=== PATIENT | female | born 1970 | race Hispanic/Latino ===

== ENCOUNTER 2023-02-11 02:33 | Emergency (ER) | payer OTHER, SELFPAY ==
--- OUTSIDE RECORDS SUMMARY | 2023-02-11 02:38 | XMS REPORT | Continuity of Care Document ---
:1970 Author Organization [facility] t Address [address] [facility]. [address] [place] [address] Care Team Providers Name Role Phone Jeremias FORD, [facility] Primary Care Physician [phone] SERVICE, DOCTOR REVIEW Attending Clinician Unavailable Darrius Whitlock Attending Clinician Unavailable Phil Attending Clinician Unavailable SERVICE, DOCTOR REVIEW Admitting Clinician Unavailable KNOW, DOES_NOT Admitting Clinician Unavailable Phil Admitting Clinician Unavailable Payers Payer Name Policy Type Policy Number Effective Date Expiration Date S ource Problems Condition Condition Condition Status Onset Resolution Last Treating Co mments Source Name Details Category Date Date Treatment Clinician Date Peroneal Peroneal Problem Active Azale a tendinitis Tendinitis 2-21 Or thope of right of Right 00:00: dic lower limb Lower Limb 00 Sp orts Medicin e Sprain of Sprain of Problem Active 2021-06 Aza alice right Right 0-25 Orthope ankle Ankle 00:00: dic 00 Sports Medicin e Allergies, Adverse Reactions, Alerts Allergy Allergy Status Severity Reaction(s) Onset Inactive Treating Comm ents Source Name Type Date Date Clinician Mesna - Propensi Active Intraven ty to 6-27 ous adverse 00:00: reaction 00 to drug Social History Smoking Status Start Date Stop Date Source Never Smoker [facility] Medications Ordered Filled Start Stop Current Ordering Indication Dosage Frequency Signature Comments Components Source Medication Medication Date Date Medication? Clinician (SIG) Name Name TAKE 1 No 500 TABLET BY 8-24 MOUTH EVERY 00:00: 12 HOURS 00 Dose 2021-0 No Unknown 3-30 00:00: 00 Dose 2021-0 No Unknown 3-30 00:00: 00 Dose 2021-0 No Unknown 3-30 00:00: 00 Dose 2021-0 No Unknown 3-30 00:00: 00 polyethylen 2-0 No 1gram e glycol 3-28 3350 17 00:00: gram oral 00 powder packet Dose 2021-0 No Unknown 3- 00:00: 00 Dose 2021-0 No Unknown 3- 00:00: 00 Dose 2021-0 No Unknown 3- 00:00: 00 polyethylen 2021-0 No 1gram e glycol 3 3350 17 00:00: gram oral 00 powder packet Dose 2021-0 No Unknown 3- 00:00: 00 Dose 2021-0 No Unknown 3- 00:00: 00 Dose 2021-0 No Unknown 3- 00:00: 00 Bactrim DS 2020-0 No 1mg 800 mg-160 6-25 mg tablet 00:00: 00 Bactrim DS 2020-0 No 1mg 800 mg-160 6-25 mg tablet 00:00: 00 Diflucan 2017-1 No 1mg 150 mg 2-28 tablet 00:00: 00 Diflucan 2017-1 No 1mg 150 mg 2-28 tablet 00:00: 00 diclofenac diclofenac No diclofenac Hayley sodium 75 sodium 75 sodium 75 Orthope mg mg mg dic tablet,manuelito tablet,manuelito tablet,del Sports yed release yed release ayed M edicin TAKE 1 TAKE 1 release e TABLET BY TABLET BY TAKE 1 MOUTH TWICE MOUTH TWICE TABLET BY DAILY DAILY MOUTH NEEDED WITH NEEDED WITH TWICE FOOD, NOT FOOD, NOT DAILY ON AM EMPTY ON AM EMPTY NEEDED STOMACH STOMACH WITH FOOD, NOT ON AM EMPTY STOMACH naproxen naproxen No naproxen Aza alice 500 mg 500 mg 500 mg Orthope tablet TAKE tablet TAKE tablet dic 1 TABLET BY 1 TABLET BY TAKE 1 Sports MOUTH EVERY MOUTH EVERY TABLET BY Medicin 12 HOURS 12 HOURS MOUTH e EVERY 12 HOURS diclofenac diclofenac No diclofenac Hayley sodium 75 sodium 75 sodium 75 Orthope mg mg mg dic tablet,manuelito tablet,manuelito tablet,del Sports yed release yed release ayed M edicin TAKE 1 TAKE 1 release e TABLET BY TABLET BY TAKE 1 MOUTH TWICE MOUTH TWICE TABLET BY DAILY DAILY MOUTH NEEDED WITH NEEDED WITH TWICE FOOD, NOT FOOD, NOT DAILY ON AM EMPTY ON AM EMPTY NEEDED STOMACH STOMACH WITH FOOD, NOT ON AM EMPTY STOMACH naproxen naproxen No naproxen Aza alice 500 mg 500 mg 500 mg Orthope tablet TAKE tablet TAKE tablet dic 1 TABLET BY 1 TABLET BY TAKE 1 Sports MOUTH EVERY MOUTH EVERY TABLET BY Medicin 12 HOURS 12 HOURS MOUTH e EVERY 12 HOURS diclofenac diclofenac No diclofenac Hayley sodium 75 sodium 75 sodium 75 Orthope mg mg mg dic tablet,manuelito tablet,manuelito tablet,del Sports yed release yed release ayed M edicin TAKE 1 TAKE 1 release e TABLET BY TABLET BY TAKE 1 MOUTH TWICE MOUTH TWICE TABLET BY DAILY DAILY MOUTH NEEDED WITH NEEDED WITH TWICE FOOD, NOT FOOD, NOT DAILY ON AM EMPTY ON AM EMPTY NEEDED STOMACH STOMACH WITH FOOD, NOT ON AM EMPTY STOMACH naproxen naproxen No naproxen Aza alice 500 mg 500 mg 500 mg Orthope tablet TAKE tablet TAKE tablet dic 1 TABLET BY 1 TABLET BY TAKE 1 Sports MOUTH EVERY MOUTH EVERY TABLET BY Medicin 12 HOURS 12 HOURS MOUTH e EVERY 12 HOURS Immunizations Ordered Immunization Filled Immunization Date Status Commen ts Source Name Name Tdap 2020-12-12 Completed 00:00:00 Tdap 2020-12-12 Completed 00:00:00 Vital Signs Vital Name Observation Time Observation Value Comments Source BP Systolic 2022-02-03 10:40:00 115 mm[Hg] BP Diastolic 2022-02-03 10:40:00 82 mm[Hg] Weight Measured 2022-02-03 10:40:00 164.00 pounds Height Measured 2022-02-03 10:40:00 63.00 inches Body Temperature 2022-02-03 10:40:00 98.00 degrees Heart Rate 2022-02-03 10:40:00 98.00 /min Respiratory Rate 2022-02-03 10:40:00 18.00 /min BP Systolic 2021-12-07 16:04:00 132 mm[Hg] BP Diastolic 2021-12-07 16:04:00 82 mm[Hg] Weight Measured 2021-12-07 16:04:00 163.60 pounds Height Measured 2021-12-07 16:04:00 63.00 inches Body Temperature 2021-12-07 16:04:00 97.70 degrees Heart Rate 2021-12-07 16:04:00 69.00 /min Respiratory Rate 2021-12-07 16:04:00 BP Systolic 2021-09-07 14:07:00 115 mm[Hg] BP Diastolic 2021-09-07 14:07:00 78 mm[Hg] Weight Measured 2021-09-07 14:07:00 167.40 pounds Height Measured 2021-09-07 14:07:00 63.00 inches Body Temperature 2021-09-07 14:07:00 98.30 degrees Heart Rate 2021-09-07 14:07:00 74.00 /min Respiratory Rate 2021-09-07 14:07:00 16.00 /min BP Systolic 2020-12-16 11:16:00 132 mm[Hg] BP Diastolic 2020-12-16 11:16:00 78 mm[Hg] Weight Measured 2020-12-16 11:16:00 165.40 pounds Height Measured 2020-12-16 11:16:00 63.00 inches Body Temperature 2020-12-16 11:16:00 98.10 degrees Heart Rate 2020-12-16 11:16:00 64.00 /min Respiratory Rate 2020-12-16 11:16:00 17.00 /min BP Systolic 2020-12-12 11:14:00 131 mm[Hg] BP Diastolic 2020-12-12 11:14:00 83 mm[Hg] Weight Measured 2020-12-12 11:14:00 166.20 pounds Height Measured 2020-12-12 11:14:00 63.00 inches Body Temperature 2020-12-12 11:14:00 98.10 degrees Heart Rate 2020-12-12 11:14:00 73.00 /min Respiratory Rate 2020-12-12 11:14:00 BP Systolic 2019-12-06 09:58:00 118 mm[Hg] BP Diastolic 2019-12-06 09:58:00 83 mm[Hg] Weight Measured 2019-12-06 09:58:00 158.00 pounds Height Measured 2019-12-06 09:58:00 63.00 inches Body Temperature 2019-12-06 09:58:00 98.10 degrees Heart Rate 2019-12-06 09:58:00 75.00 /min Respiratory Rate 2019-12-06 09:58:00 BP Systolic 2019-10-18 11:25:00 99 mm[Hg] BP Diastolic 2019-10-18 11:25:00 67 mm[Hg] Weight Measured 2019-10-18 11:25:00 156.00 pounds Height Measured 2019-10-18 11:25:00 63.00 inches Body Temperature 2019-10-18 11:25:00 98.50 degrees Heart Rate 2019-10-18 11:25:00 79.00 /min Respiratory Rate 2019-10-18 11:25:00 16.00 /min BP Systolic 2019-06-27 15:59:00 115 mm[Hg] BP Diastolic 2019-06-27 15:59:00 81 mm[Hg] Weight Measured 2019-06-27 15:59:00 159.20 pounds Height Measured 2019-06-27 15:59:00 63.00 inches Body Temperature 2019-06-27 15:59:00 97.90 degrees Heart Rate 2019-06-27 15:59:00 82.00 /min Respiratory Rate 2019-06-27 15:59:00 BP Systolic 2018-06-22 08:26:00 127 mm[Hg] BP Diastolic 2018-06-22 08:26:00 70 mm[Hg] Weight Measured 2018-06-22 08:26:00 165.60 pounds Height Measured 2018-06-22 08:26:00 63.00 inches Body Temperature 2018-06-22 08:26:00 98.10 degrees Heart Rate 2018-06-22 08:26:00 68.00 /min Respiratory Rate 2018-06-22 08:26:00 18.00 /min BP Diastolic 2017-07-07 10:31:00 87 mm[Hg] Weight Measured 2017-07-07 10:31:00 161.40 pounds Height Measured 2017-07-07 10:31:00 63.00 inches Body Temperature 2017-07-07 10:31:00 97.90 degrees Heart Rate 2017-07-07 10:31:00 76.00 /min Respiratory Rate 2017-07-07 10:31:00 BP Systolic 2017-07-07 10:31:00 123 mm[Hg] BP Systolic 2017-05-09 10:27:00 121 mm[Hg] BP Diastolic 2017-05-09 10:27:00 86 mm[Hg] Weight Measured 2017-05-09 10:27:00 158.00 pounds Height Measured 2017-05-09 10:27:00 63.00 inches Body Temperature 2017-05-09 10:27:00 98.20 degrees Heart Rate 2017-05-09 10:27:00 96.00 /min Respiratory Rate 2017-05-09 10:27:00 18.00 /min Procedures Procedure Date / Time Performed Performing Clinician Sourc e XR, ankle, 3 or more 2022-04-06 00:00:00 [facility] Orthopedic view Sports Medicine MRI, ankle, w/o 2022-04-06 00:00:00 [facility] Ortho pedic contrast Sports Medicine [id number] Colposcopy 2017-07-07 00:00:00 Cervix Bx Cervix endocrv Curtg Plan of Care Planned Activity Planned Date Details Comments Source Goal Plan of Care Note [code = 67358-8] Goal Plan of Care Note [code = 64885-0] Goal Plan of Care Note [code = 28200-5] Goal Plan of Care Note [code = 57611-9] Goal Plan of Care Note [code = 24422-8] Goal Plan of Care Note [code = 18221-4] Goal Plan of Care Note [code = 28228-5] Goal Plan of Care Note [code = 26464-2] Goal Plan of Care Note [code = 80174-5] Goal Plan of Care Note [code = 85360-2] Goal Plan of Care Note [code = 16760-9] Goal Plan of Care Note [code = 36544-3] Goal Plan of Care Note [code = 21898-4] Goal Plan of Care Note [code = 72314-9] Goal Plan of Care Note [code = 60996-1] Goal Plan of Care Note [code = 48580-5] Goal Plan of Care Note [code = 29994-5] Goal Plan of Care Note [code = 18628-6] Goal Plan of Care Note [code = 48421-9] Goal Plan of Care Note [code = 94323-8] Goal Plan of Care Note [code = 91595-9] Goal Plan of Care Note [code = 71448-4] Goal Plan of Care Note [code = 74330-4] Goal Plan of Care Note [code = 14633-5] Goal Plan of Care Note [code = 41424-6] Goal Plan of Care Note [code = 59083-8] Goal Plan of Care Note [code = 34518-4] Goal Plan of Care Note [code = 72777-5] Goal Plan of Care Note [code = 80994-7] Goal Plan of Care Note [code = 63766-5] Goal Plan of Care Note [code = 28397-4] Goal Plan of Care Note [code = 87947-2] Goal Plan of Care Note [code = 82142-6] Goal Plan of Care Note [code = 27080-9] Goal Plan of Care Note [code = 52368-2] Goal Plan of Care Note [code = 52849-5] Goal Plan of Care Note [code = 68478-3] Goal Plan of Care Note [code = 16164-6] Goal Plan of Care Note [code = 22437-8] Goal Plan of Care Note [code = 73238-6] Goal Plan of Care Note [code = 33913-1] Goal Plan of Care Note [code = 84035-4] Goal Plan of Care Note [code = 00195-2] Goal Plan of Care Note [code = 00386-5] Goal Plan of Care Note [code = 69568-9] Goal Plan of Care Note [code = 32344-7] Goal Plan of Care Note [code = 15499-2] Goal Plan of Care Note [code = 47842-3] Goal Plan of Care Note [code = 32386-2] Goal Plan of Care Note [code = 44544-3] Goal Plan of Care Note [code = 56096-9] Goal Plan of Care Note [code = 13203-4] Goal Plan of Care Note [code = 99471-3] Goal Plan of Care Note [code = 71334-0] Goal Plan of Care Note [code = 10197-0] Goal Plan of Care Note [code = 53005-3] Goal Plan of Care Note [code = 59549-0] Goal Plan of Care Note [code = 85076-7] Goal Plan of Care Note [code = 04433-5] Instructions [facility] Sports Medicine Encounters Start End Encounter Admission Attending Care Care Encounter Source Date/Time Date/Time Type Type Clinicians Facility Department ID 2022-07-07 Inpatient ALYSSA PACHECO REHA [id number] [facility] 15:31:00 DOCTOR [facility] 2022-08-04 2022-08-04 Darrius Malone AOS[facility] [place] - Ortho [id number] Hayley 00:00:00 00:00:00 Payton Whitlock MD: [id number] [facility] Spo [facility] e [phone] , Ph. [phone] 2022-07-14 2022-07-14 Inpatient LESLIE GreenTO RADI [id number] [facility] 11:00:00 11:00:00 Darrius [facility] 2022-07-05 2022-07-05 Outpatient [facility]_[place]_ AOSM AOSM [id number] Hayley 00:00:00 00:00:00 Jessy [id number] Ortho pe dic Sports Medicin e 2022-06-30 2022-06-30 Darrius Malone AOS[facility] [place] - Ortho [id number] Hayley 00:00:00 00:00:00 Payton Whitlock MD: [address] [facility] e [address] , Ph. [phone] 2022-05-12 2022-05-12 Outpatient F[facility]_[place]_ AOSM AOSM [id number] Hayley 00:00:00 00:00:00 Jessy [id number] Ortho pe dic Sports Medicin e 2022-04-06 2022-04-06 Outpatient Kamlesh LESLIETO RADI [id number] [facility] 13:30:00 13:30:00 Darrius [facility] 2022-04-06 2022-04-06 Outpatient [facility]_[place]_ AOSM AOSM [id number] Hayley 00:00:00 00:00:00 Jessy [id number] Ortho pe dic Sports Medicin e 2022-04-06 2022-04-06 Darrius FLORENTINOSM [place] - Ortho [id number] Hayley 00:00:00 00:00:00 Payton Whitlock MD: [address] [facility] Sp[place] [address] , Ph. [phone] 2022-03-17 2022-03-17 Outpatient FOG_[place]_ AOSM AOSM [id number] Hayley 00:00:00 00:00:00 Jessy [id number] Ortho pe dic Sports Medicin e 2022-02-03 2022-02-03 Outpatient [id number]- [id number] 00:00:00 00:00:00 Visit [id number] 2021-12-07 2021-12-07 Outpatient [id number] [id number] 00:00:00 00:00:00 Visit [id number] Results Test Description Test Time Test Comments Results Result Comments Source HIV 1/2 4TH GEN, RFLX CONF 2022-02-04 06:22:40 Test Item Value Reference Range Interpretation Comme nts HIV 1/2 4TH GEN, RFLX CONF (test code = 3514) NON-REACTIVE NON-REAC TIVE HEPATITIS PANEL, [id number] 06:22:40 Test Item Value Reference Range Interpretation Comments HEPATITIS A IgM (test NON-REACTIVE NON-REACTIVE code = 33670) HEPATITIS B CORE IgM NON-REACTIVE NON-REACTIVE (test code = 4644) HEPATITIS B SURF AG NON-REACTIVE NON-REACTIVE (test code = 2739) HEPATITIS C ANTIBODY NON-REACTIVE NON-REACTIVE (test code = 4675) INTERPRETATION (NOTE) Hepatitis A HEPATITIS A: (test serology shows no code = 2552) evidence of acu te hepatitis A. INTERPRETATION (NOTE) Hepatitis B HEPATITIS B: (test serology shows no code = 11429) evidence of ac darien hepatitis B and no indication of exposure to hepatitis B vir us in the previous si xto eight months. INTERPRETATION (NOTE) Hepatitis C HEPATITIS C: (test serology shows no code = 98768) evidence of ex posure to hepatitisC v irus at this time. I t can take up to 12 m onths after exposure tothe hepatitis C vir us for antibodies to become detectab le in the blood in ce rtain patients. UNLES S OTHERWISE INDIC ATED, ALL TESTING PERFORMED [facility], [facility]. [address] [place] [place] [address] [facility] DIRECTOR: NABIL PRIETO M.D. CLIA NUMBER [id number] [place] [id number] HEMOGLOBIN [id number] 05:16:18 Test Item Value Reference Range Interpretation Comments HEMOGLOBIN A1c (test code = 04496) 5.1 % 4.2-5.6 LIPID [id number] 03:50:06 Test Item Value Reference Range Interpretation Comments CHOLESTEROL (test 237 MG/DL <200 H code = 2210) TRIGLYCERIDES (test 303 MG/DL <150 H code = 2232) HDL CHOLESTEROL (test 58 MG/DL >39 code = 2220) CALC LDL CHOL (test 136 MG/DL <100 H NOTE: C ALCULATED LDL code = 2237) IS BASED ON ARTURO-SEVERINO METHOD WHICHINCLUDES ADJUSTABLE TRIGLYCERIDE:VL DL CHOLESTEROL RAT IO.THIS FACTOR VARIES B Y MEASURED TRIGLY CERIDE AND NON-HDLCHOL ESTEROL CONCENTRATIONS WITH INCREASED CALCU LATED LDL SEENIN HIGH ER TRIGLYCERIDE OR LOWER NON-HDL SPECIME NS. FOR MOREINFORMATION , SEE CLIENT ANNOUNCE MENT AT [email or web address] [email or web address] [email or web address] LDL/HDL 2.34 RATIO <3.22 (test code = 2238) COMPREHENSIVE METABOLIC [id number] 03:50:06 Test Item Value Reference Range Interpretation Comments GLUCOSE (test code = 79 MG/DL 70-99 2216) BUN (test code = 10 MG/DL -2207) CREATININE (test 0.66 MG/DL 0.60-1.30 code = 2214) eGFR (2020 CKD-EPI) 104 >60 (test code = 68373) ML/MIN/1.73 CALC BUN/CREAT (test 15 RATIO - code = 2235) SODIUM (test code = 140 MEQ/L 030-971 1207) POTASSIUM (test code 4.3 MEQ/L 3.5-5.4 = 2227) CHLORIDE (test code 105 MEQ/L 95-107 = 2215) CARBON DIOXIDE (test 22 MEQ/L 19-31 code = 2206) CALCIUM (test code = 9.5 MG/DL 8.5-10.5 220) PROTEIN, TOTAL (test 7.7 G/DL 6.1-8.3 code = 2229) ALBUMIN (test code = 4.4 G/DL 3.5-5.2 220) CALC GLOBULIN (test 3.3 G/DL 1.9-3.7 code = 2240) CALC A/G RATIO (test 1.3 RATIO 1.0-2.6 code = 2234) BILIRUBIN, TOTAL 0.4 MG/DL See_Comment [Automated message] (test code = 220) The syste m which generated this result transmit art reference range : <=1.2. The refe rence range was not u sed to interpret th is result as normal/abnormal . ALKALINE PHOSPHATASE 147 U/L 40-133 H (test code = 2203) AST (test code = 25 U/L 9-40 2217) ALT (test code = 19 U/L 5-40 2218) CBC W/AUTO DIFF WITH [id number] 03:28:45 Test Item Value Reference Range Interpretation Comments WBC (test code = 7.8 K/UL 3.5-11.0 1001) RBC (test code = 4.75 M/UL 3.80-5.40 1002) HEMOGLOBIN (test code 13.3 G/DL 11.5-15.5 = 1003) HEMATOCRIT (test code 39.6 % 34.0-45.0 = 1004) MCV (test code = 83.4 fL 80.0-99.0 1005) MCH (test code = 28.0 PG 25.0-33.0 1006) MCHC (test code = 33.6 G/DL 31.0-36.0 1007) RDW (test code = 13.8 % 11.5-15.0 1038) NEUTROPHILS (test 73.4 % code = 1008) LYMPHOCYTES (test 17.5 % code = 1010) MONOCYTES (test code 6.8 % = 1011) EOSINOPHILS (test 1.5 % code = 1012) BASOPHILS (test code 0.5 % = 1013) IMMATURE GRANULOCYTES 0.3 % (test code = 1036) NUCLEATED RBCS (test 0.0 /100 WBC'S See_Comment [Aut omated code = 1065) message] The sy stem which generated this result transmitted reference range : 0.0. The refere nce range was not u sed to interpret th is result as normal/abnormal . PLATELET COUNT (test 359 K/UL 130-400 code = 1015) ABSOLUTE NEUTROPHILS 5.74 K/UL 1.50-7.50 (test code = 1066) ABSOLUTE LYMPHOCYTES 1.37 K/UL 1.00-4.00 (test code = 1067) ABSOLUTE MONOCYTES 0.53 K/UL 0.20-1.00 (test code = 1068) ABSOLUTE EOSINOPHILS 0.12 K/UL 0.00-0.50 (test code = 1040) ABSOLUTE BASOPHILS 0.04 K/UL 0.00-0.20 (test code = 1069) ABS IMMATURE 0.02 K/UL 0.00-0.10 GRANULOCYTES (test code = 1020) ABS NUCLEATED RBCS 0.00 K/UL 0.00-0.11 (test code = 15646) [id number] 02:59:22 Test Item Value Reference Range Interpretation Comments RPR RESULT (test code = NON-REACTIVE NON-REACTIVE 3501) RPR TITER (test code = 3500) NOT INDIC. TITER NOT INDIC. LIPID [id number] 05:34:01 Test Item Value Reference Range Interpretation Comments CHOLESTEROL (test 249 MG/DL <200 H code = 2210) TRIGLYCERIDES (test 179 MG/DL <150 H code = 2232) HDL CHOLESTEROL (test 66 MG/DL >39 code = 2220) CALC LDL CHOL (test 152 MG/DL <100 H NOTE: C ALCULATED LDL code = 2237) IS BASED ON ARTURO-SEVERINO METHOD WHICHINCLUDES ADJUSTABLE TRIGLYCERIDE:VL DL CHOLESTEROL RAT IO.THIS FACTOR VARIES B Y MEASURED TRIGLY CERIDE AND NON-HDLCHOL ESTEROL CONCENTRATIONS WITH INCREASED CALCU LATED LDL SEENIN HIGH ER TRIGLYCERIDE OR LOWER NON-HDL SPECIME NS. FOR MOREINFORMATION , SEE CLIENT ANNOUNCE MENT AT [email or web address] LDL/HDL 2.30 RATIO <3.22 UNLESS O THERWISE (test code = 2238) INDICATED , ALL TESTING PERFORMED [facility], [place]. [address] [facility] [place] [address] [facility] DIRECTOR: NABIL PRIETO M.D. CLIA NUMBER [id number] [facility] ACCREDITATION N O. [id number] LIPID [id number] 00:00:00 Test Item Value Reference Range Interpretation Comments CHOLESTEROL (test code = 2210) 249 MG/DL TRIGLYCERIDES (test code = 2232) 179 MG/DL HDL CHOLESTEROL (test code = 2220) 66 MG/DL CALC LDL CHOL (test code = 2237) 152 MG/DL RISK RATIO LDL/HDL (test code = 2.30 RATIO 2238) LIPID [id number] 00:00:00 Test Item Value Reference Range Interpretation Comments CHOLESTEROL (test code = 2210) 249 MG/DL TRIGLYCERIDES (test code = 2232) 179 MG/DL HDL CHOLESTEROL (test code = 2220) 66 MG/DL CALC LDL CHOL (test code = 2237) 152 MG/DL RISK RATIO LDL/HDL (test code = 2.30 RATIO 2238) LIPID [id number] 00:00:00 Test Item Value Reference Range Interpretation Comments CHOLESTEROL (test code = 2210) 249 MG/DL TRIGLYCERIDES (test code = 2232) 179 MG/DL HDL CHOLESTEROL (test code = 2220) 66 MG/DL CALC LDL CHOL (test code = 2237) 152 MG/DL RISK RATIO LDL/HDL (test code = 2.30 RATIO 2238) CBC W/AUTO [id number] 00:00:00 Test Item Value Reference Range Interpretation Comments WBC (test code = 1001) 7.5 K/UL RBC (test code = 1002) 4.78 M/UL HEMOGLOBIN (test code = 1003) 14.6 G/DL HEMATOCRIT (test code = 1004) 43.1 % MCV (test code = 1005) 90.2 fL MCH (test code = 1006) 30.5 PG MCHC (test code = 1007) 33.9 G/DL RDW (test code = 1038) 12.3 % NEUTROPHILS (test code = 1008) 68.2 % LYMPHOCYTES (test code = 1010) 24.0 % MONOCYTES (test code = 1011) 5.6 % EOSINOPHILS (test code = 1012) 1.2 % BASOPHILS (test code = 1013) 0.7 % IMMATURE GRANULOCYTES (test 0.3 % code = 1036) NUCLEATED RBCS (test code = 0.0 /100WBC'S 1065) PLATELET COUNT (test code = 359 K/UL 1015) ABSOLUTE NEUTROPHILS (test code 5.09 K/UL = 1066) ABSOLUTE LYMPHOCYTES (test code 1.79 K/UL = 1067) ABSOLUTE MONOCYTES (test code = 0.42 K/UL 1068) ABSOLUTE EOSINOPHILS (test code 0.09 K/UL = 1040) ABSOLUTE BASOPHILS (test code = 0.05 K/UL 1069) ABS IMMATURE GRANULOCYTES (test 0.02 K/UL code = 1020) ABS NUCLEATED RBCS (test code = 0.00 K/UL 54637) CBC W/AUTO [id number] 00:00:00 Test Item Value Reference Range Interpretation Comments WBC (test code = 1001) 7.5 K/UL RBC (test code = 1002) 4.78 M/UL HEMOGLOBIN (test code = 1003) 14.6 G/DL HEMATOCRIT (test code = 1004) 43.1 % MCV (test code = 1005) 90.2 fL MCH (test code = 1006) 30.5 PG MCHC (test code = 1007) 33.9 G/DL RDW (test code = 1038) 12.3 % NEUTROPHILS (test code = 1008) 68.2 % LYMPHOCYTES (test code = 1010) 24.0 % MONOCYTES (test code = 1011) 5.6 % EOSINOPHILS (test code = 1012) 1.2 % BASOPHILS (test code = 1013) 0.7 % IMMATURE GRANULOCYTES (test 0.3 % code = 1036) NUCLEATED RBCS (test code = 0.0 /100WBC'S 1065) PLATELET COUNT (test code = 359 K/UL 1015) ABSOLUTE NEUTROPHILS (test code 5.09 K/UL = 1066) ABSOLUTE LYMPHOCYTES (test code 1.79 K/UL = 1067) ABSOLUTE MONOCYTES (test code = 0.42 K/UL 1068) ABSOLUTE EOSINOPHILS (test code 0.09 K/UL = 1040) ABSOLUTE BASOPHILS (test code = 0.05 K/UL 1069) ABS IMMATURE GRANULOCYTES (test 0.02 K/UL code = 1020) ABS NUCLEATED RBCS (test code = 0.00 K/UL 05804) CBC W/AUTO [id number] 00:00:00 Test Item Value Reference Range Interpretation Comments WBC (test code = 1001) 7.5 K/UL RBC (test code = 1002) 4.78 M/UL HEMOGLOBIN (test code = 1003) 14.6 G/DL HEMATOCRIT (test code = 1004) 43.1 % MCV (test code = 1005) 90.2 fL MCH (test code = 1006) 30.5 PG MCHC (test code = 1007) 33.9 G/DL RDW (test code = 1038) 12.3 % NEUTROPHILS (test code = 1008) 68.2 % LYMPHOCYTES (test code = 1010) 24.0 % MONOCYTES (test code = 1011) 5.6 % EOSINOPHILS (test code = 1012) 1.2 % BASOPHILS (test code = 1013) 0.7 % IMMATURE GRANULOCYTES (test 0.3 % code = 1036) NUCLEATED RBCS (test code = 0.0 /100WBC'S 1065) PLATELET COUNT (test code = 359 K/UL 1015) ABSOLUTE NEUTROPHILS (test code 5.09 K/UL = 1066) ABSOLUTE LYMPHOCYTES (test code 1.79 K/UL = 1067) ABSOLUTE MONOCYTES (test code = 0.42 K/UL 1068) ABSOLUTE EOSINOPHILS (test code 0.09 K/UL = 1040) ABSOLUTE BASOPHILS (test code = 0.05 K/UL 1069) ABS IMMATURE GRANULOCYTES (test 0.02 K/UL code = 1020) ABS NUCLEATED RBCS (test code = 0.00 K/UL 99297) CBC W/AUTO [id number] 00:00:00 Test Item Value Reference Range Interpretation Comments WBC (test code = 1001) 7.5 K/UL RBC (test code = 1002) 4.78 M/UL HEMOGLOBIN (test code = 1003) 14.6 G/DL HEMATOCRIT (test code = 1004) 43.1 % MCV (test code = 1005) 90.2 fL MCH (test code = 1006) 30.5 PG MCHC (test code = 1007) 33.9 G/DL RDW (test code = 1038) 12.3 % NEUTROPHILS (test code = 1008) 68.2 % LYMPHOCYTES (test code = 1010) 24.0 % MONOCYTES (test code = 1011) 5.6 % EOSINOPHILS (test code = 1012) 1.2 % BASOPHILS (test code = 1013) 0.7 % IMMATURE GRANULOCYTES (test 0.3 % code = 1036) NUCLEATED RBCS (test code = 0.0 /100WBC'S 1065) PLATELET COUNT (test code = 359 K/UL 1015) ABSOLUTE NEUTROPHILS (test code 5.09 K/UL = 1066) ABSOLUTE LYMPHOCYTES (test code 1.79 K/UL = 1067) ABSOLUTE MONOCYTES (test code = 0.42 K/UL 1068) ABSOLUTE EOSINOPHILS (test code 0.09 K/UL = 1040) ABSOLUTE BASOPHILS (test code = 0.05 K/UL 1069) ABS IMMATURE GRANULOCYTES (test 0.02 K/UL code = 1020) ABS NUCLEATED RBCS (test code = 0.00 K/UL 78611) CBC W/AUTO [id number] 00:00:00 Test Item Value Reference Range Interpretation Comments WBC (test code = 1001) 7.5 K/UL RBC (test code = 1002) 4.78 M/UL HEMOGLOBIN (test code = 1003) 14.6 G/DL HEMATOCRIT (test code = 1004) 43.1 % MCV (test code = 1005) 90.2 fL MCH (test code = 1006) 30.5 PG MCHC (test code = 1007) 33.9 G/DL RDW (test code = 1038) 12.3 % NEUTROPHILS (test code = 1008) 68.2 % LYMPHOCYTES (test code = 1010) 24.0 % MONOCYTES (test code = 1011) 5.6 % EOSINOPHILS (test code = 1012) 1.2 % BASOPHILS (test code = 1013) 0.7 % IMMATURE GRANULOCYTES (test 0.3 % code = 1036) NUCLEATED RBCS (test code = 0.0 /100WBC'S 1065) PLATELET COUNT (test code = 359 K/UL 1015) ABSOLUTE NEUTROPHILS (test code 5.09 K/UL = 1066) ABSOLUTE LYMPHOCYTES (test code 1.79 K/UL = 1067) ABSOLUTE MONOCYTES (test code = 0.42 K/UL 1068) ABSOLUTE EOSINOPHILS (test code 0.09 K/UL = 1040) ABSOLUTE BASOPHILS (test code = 0.05 K/UL 1069) ABS IMMATURE GRANULOCYTES (test 0.02 K/UL code = 1020) ABS NUCLEATED RBCS (test code = 0.00 K/UL 68623) HEMOGLOBIN [id number] 00:00:00 Test Item Value Reference Range Interpretation Comments HEMOGLOBIN A1c (test code = 26426) 4.9 % HEMOGLOBIN [id number] 00:00:00 Test Item Value Reference Range Interpretation Comments HEMOGLOBIN A1c (test code = 78787) 4.9 % HEMOGLOBIN [id number] 00:00:00 Test Item Value Reference Range Interpretation Comments HEMOGLOBIN A1c (test code = 24795) 4.9 % LIPID [id number] 00:00:00 Test Item Value Reference Range Interpretation Comments CHOLESTEROL (test code = 2210) 248 MG/DL TRIGLYCERIDES (test code = 2232) 231 MG/DL HDL CHOLESTEROL (test code = 2220) 67 MG/DL CALC LDL CHOL (test code = 2237) 144 MG/DL RISK RATIO LDL/HDL (test code = 2.15 RATIO 2238) LIPID [id number] 00:00:00 Test Item Value Reference Range Interpretation Comments CHOLESTEROL (test code = 2210) 248 MG/DL TRIGLYCERIDES (test code = 2232) 231 MG/DL HDL CHOLESTEROL (test code = 2220) 67 MG/DL CALC LDL CHOL (test code = 2237) 144 MG/DL RISK RATIO LDL/HDL (test code = 2.15 RATIO 2238) COMPREHENSIVE METABOLIC [id number] 00:00:00 Test Item Value Reference Range Interpretation Comments GLUCOSE (test code = 2217) 62 MG/DL BUN (test code = 2208) 10 MG/DL CREATININE (test code = 2214) 0.63 MG/DL eGFR AMER. (test code 120 ML/MIN/1.73 = 47850) eGFR NON- AMER. (test 103 ML/MIN/1.73 code = 19778) CALC BUN/CREAT (test code = 16 RATIO 2235) SODIUM (test code = 2231) 144 MEQ/L POTASSIUM (test code = 2228) 4.3 MEQ/L CHLORIDE (test code = 2215) 107 MEQ/L CARBON DIOXIDE (test code = 23 MEQ/L 2205) CALCIUM (test code = 2209) 9.3 MG/DL PROTEIN, TOTAL (test code = 7.3 G/DL 2228) ALBUMIN (test code = 2201) 4.4 G/DL CALC GLOBULIN (test code = 2.9 G/DL 2239) CALC A/G RATIO (test code = 1.5 RATIO 2234) BILIRUBIN, TOTAL (test code = 0.3 MG/DL 2206) ALKALINE PHOSPHATASE (test 134 U/L code = 2204) AST (test code = 2218) 21 U/L ALT (test code = 2219) 19 U/L COMPREHENSIVE METABOLIC [id number] 00:00:00 Test Item Value Reference Range Interpretation Comments GLUCOSE (test code = 2217) 62 MG/DL BUN (test code = 2208) 10 MG/DL CREATININE (test code = 2214) 0.63 MG/DL eGFR AMER. (test code 120 ML/MIN/1.73 = 42369) eGFR NON- AMER. (test 103 ML/MIN/1.73 code = 61269) CALC BUN/CREAT (test code = 16 RATIO 2235) SODIUM (test code = 2231) 144 MEQ/L POTASSIUM (test code = 2228) 4.3 MEQ/L CHLORIDE (test code = 2215) 107 MEQ/L CARBON DIOXIDE (test code = 23 MEQ/L 2205) CALCIUM (test code = 2209) 9.3 MG/DL PROTEIN, TOTAL (test code = 7.3 G/DL 2228) ALBUMIN (test code = 2201) 4.4 G/DL CALC GLOBULIN (test code = 2.9 G/DL 2240) CALC A/G RATIO (test code = 1.5 RATIO 4) BILIRUBIN, TOTAL (test code = 0.3 MG/DL 2206) ALKALINE PHOSPHATASE (test 134 U/L code = 2204) AST (test code = 2218) 21 U/L ALT (test code = 2219) 19 U/L [id number] 00:00:00 Test Item Value Reference Range Interpretation Comments TSH, THIRD GENERATION (test code 2.180 UIU/ML = 2821) [id number] 00:00:00 Test Item Value Reference Range Interpretation Comments TSH, THIRD GENERATION (test code 2.180 UIU/ML = 2821) [id number] 00:00:00 Test Item Value Reference Range Interpretation Comments TSH, THIRD GENERATION (test code 2.180 UIU/ML = 2821) HEMOGLOBIN [id number] 00:00:00 Test Item Value Reference Range Interpretation Comments HEMOGLOBIN A1c (test code = 15635) 4.9 % HEMOGLOBIN [id number] 00:00:00 Test Item Value Reference Range Interpretation Comments HEMOGLOBIN A1c (test code = 84431) 4.9 % LIPID [id number] 00:00:00 Test Item Value Reference Range Interpretation Comments CHOLESTEROL (test code = 2210) 248 MG/DL TRIGLYCERIDES (test code = 2232) 231 MG/DL HDL CHOLESTEROL (test code = 2220) 67 MG/DL CALC LDL CHOL (test code = 2237) 144 MG/DL RISK RATIO LDL/HDL (test code = 2.15 RATIO 2238) COMPREHENSIVE METABOLIC [id number] 00:00:00 Test Item Value Reference Range Interpretation Comments GLUCOSE (test code = 2217) 62 MG/DL BUN (test code = 2208) 10 MG/DL CREATININE (test code = 2214) 0.63 MG/DL eGFR AMER. (test code 120 ML/MIN/1.73 = 48628) eGFR NON- AMER. (test 103 ML/MIN/1.73 code = 58130) CALC BUN/CREAT (test code = 16 RATIO 2235) SODIUM (test code = 2231) 144 MEQ/L POTASSIUM (test code = 2228) 4.3 MEQ/L CHLORIDE (test code = 2215) 107 MEQ/L CARBON DIOXIDE (test code = 23 MEQ/L 220) CALCIUM (test code = 2209) 9.3 MG/DL PROTEIN, TOTAL (test code = 7.3 G/DL 2228) ALBUMIN (test code = 2201) 4.4 G/DL CALC GLOBULIN (test code = 2.9 G/DL 2240) CALC A/G RATIO (test code = 1.5 RATIO 2234) BILIRUBIN, TOTAL (test code = 0.3 MG/DL 2206) ALKALINE PHOSPHATASE (test 134 U/L code = 2204) AST (test code = 2218) 21 U/L ALT (test code = 2219) 19 U/L [id number] 00:00:00 Test Item Value Reference Range Interpretation Comments TSH, THIRD GENERATION (test code 2.180 UIU/ML = 2821) [id number] 00:00:00 Test Item Value Reference Range Interpretation Comments TSH, THIRD GENERATION (test code 2.180 UIU/ML = 2821) BREAST ULTRASOUND [id number] 11:43:43 - DIAG MAMM BILATERAL BETTY CAD DIGITALBILATERAL DIGITAL DIAGNOSTIC MAMMOGRAM 3D/2D WITH CAD: 07/27/2019CLINICAL: Diffuse bilateral breast pain. Digital breast tomosynthesis was performed in addition toroutine CC and MLO views. Current mammographic images were evaluated by either a [employer] M-Vu or a [employer] ImageChecker CAD (computer aided detection system). Comparison is made to exams dated 08/03/2018mammogram, 07/07/2018 mammogram - [facility], and 05/20/2017 mammogram - [facility]. The tissue of both breasts is heterogeneously dense. This may lower the sensitivity of mammography. Again noted are bilateral circumscribed masses seen throughout both breasts.No architectural distortion, malignant type calcification, or lymph node abnormality detected. A stable biopsy clip is noted in the upper outer right breast, anterior depth, and no adjacent abnormalities are seen.INCOMPLETE: ADDITIONAL IMAGING EVALUATION NEEDEDBilateral circumscribed masses are seen throughout both breasts. Ultrasound will be performed later today for further evaluation.- BREAST ULTRASOUND BILATERALULTRASOUND OF BOTH BREASTS AND BOTH AXILLA: 07/27/2019Comparison is made to exams dated 08/03/2018 mammogram, 07/07/2018 mammogram - [facility], and 05/20/2017 mammogram - [facility]. Real-time ultrasound of both breasts and both axilla was performed. Bilateral cysts are seen throughout both breasts and this correlates with the mammographic findings. IMPRESSION: NEGATIVE - FOLLOW-UP RECOMMENDEDThere is no sonographic evidence of malignancy. Bilateral cysts are noted;benign.A follow-up mammogram in 12 months is recommended. Katheryn Leone M.D. ar/:07/27/2019 11:43:43 Entry: - 08/01/2019 08:41:58Imaging Technologist: Rosa Roman , [facility] hanane sent: BIRADS 1-2 Combo FU Letter Mammogram BI-RADS: 0 Incomplete: Additional Imaging Evaluation Needed Ultrasound BI-RADS: 1 NegativeDIAG MAMM BILATERAL BETTY CAD [id number] 11:43:43 - DIAG MAMM BILATERAL BETTY CAD DIGITALBILATERAL DIGITAL DIAGNOSTIC MAMMOGRAM 3D/2D WITH CAD: 07/27/2019CLINICAL: Diffuse bilateral breast pain. Digital breast tomosynthesis was performed in addition toroutine CC and MLO views. Current mammographic images were evaluated by either a [employer] M-Vu or a [employer] ImageChecker CAD (computer aided detection system). Comparison is made to exams dated 08/03/2018mammogram, 07/07/2018 mammogram - [facility], and 05/20/2017 mammogram - [facility]. The tissue of both breasts is heterogeneously dense. This may lower the sensitivity of mammography. Again noted are bilateral circumscribed masses seen throughout both breasts.No architectural distortion, malignant type calcification, or lymph node abnormality detected. A stable biopsy clip is noted in the upper outer right breast, anterior depth, and no adjacent abnormalities are seen.INCOMPLETE: ADDITIONAL IMAGING EVALUATION NEEDEDBilateral circumscribed masses are seen throughout both breasts. Ultrasound will be performed later today for further evaluation.- BREAST ULTRASOUND BILATERALULTRASOUND OF BOTH BREASTS AND BOTH AXILLA: 07/27/2019Comparison is made to exams dated 08/03/2018 mammogram, 07/07/2018 mammogram - [facility], and 05/20/2017 mammogram - [facility]. Real-time ultrasound of both breasts and both axilla was performed. Bilateral cysts are seen throughout both breasts and this correlates with the mammographic findings. IMPRESSION: NEGATIVE - FOLLOW-UP RECOMMENDEDThere is no sonographic evidence of malignancy. Bilateral cysts are noted;benign.A follow-up mammogram in 12 months is recommended. Katheryn Leone M.D. ar/:07/27/2019 11:43:43 Entry: - 08/01/2019 08:41:58Imaging Technologist: Rosa Roman , [facility] hanane sent: BIRADS 1-2 Combo FU Letter Mammogram BI-RADS: 0 Incomplete: Additional Imaging Evaluation Needed Ultrasound BI-RADS: 1 NegativeBREAST ULTRASOUND CORE BIOPSY [id number] 16:46:01- BREAST ULTRASOUND CORE BIOPSY RIGHTULTRASOUND GUIDED BIOPSY RIGHT BREAST WITH MARKING DEVICE INSERTED: 08/03/2018CLINICAL: Ultrasound biopsy, right breast. Comparison is made to exams dated 07/07/2018 ultrasound, 07/07/2018 mammogram - [facility], and 05/20/2017 mammogram - [facility]. An ultrasound guided biopsy using real-time ultrasound was performed for the circumscribed oval mass located in the right breast at 12 o'clock, 6 cm from the nipple. This was described on the previous ultrasound report. The skin was prepped in the usual manner. Local anesthetic was administered to the access site. The abnormality was approached from the medial aspect. A biopsy needle was placed adjacent to the abnormality under ultrasound guidance. Once the needle was documented to be in the correct location, a specimen was obtained using a BARD biopsy device. A clip was inserted into the biopsy cavity. The specimen was sent to the laboratory for pathological analysis. IMPRESSION: ULTRASOUND GUIDED BIOPSYUltrasound guided biopsy of the mass in the right breast at 12 o'clock, middledepth, was successful with no apparent post procedure complications. Waiting for pathology results. A final report will be issued when these become available. FINAL PATHOLOGY: Right breast at 12 o'clock, 6 cm from the nipple, core needle biopsy:Benign fibrocystic change with cyst in the usual type ductal epithelial hyperplasia. No atypia or malignancy is seen.RECOMMENDATION: Return for annual screening mammography in one year. BI-RADS 2. Benign.Yehuda Leone M.D.,ar/:08/08/2018 16:46:01 Entry: - 08/09/2018 07:32:01Imaging Technologist: Taylor VASQUEZ, [facility] sent: Benign BiopsyDIAG MAMM RIGHT CAD [id number] 11:19:51 - DIAG MAMM RIGHT CAD DIGITALUNILATERAL RIGHT DIGITAL DIAGNOSTIC MAMMOGRAM WITH CAD POST-PROCEDURE IMAGING FOR MARKER PLACEMENT: 08/03/2018CLINICAL: Post clip placement. Current mammographic images were evaluated by either a [employer] M-Vu or a [employer] ImageChecker CAD (computer aided detection system). Comparison is made to exams dated 07/07/2018 mammogram - [facility], 05/20/2017 mammogram - [facility], and 03/31/2010 mammogram - [facility] [id number]. The tissue of the right breast is heterogeneously dense. This may lower the sensitivity of mammography. Postprocedure mammogram demonstrates biopsy marker clip within the biopsied right breast mass at 12 o'clock.IMPRESSIO N: POST PROCEDURE IMAGING FOR MARKER PLACEMENTSuccessful biopsy marker placement in the right seen right breast mass.Yehuda Watt M.D. ss/:08/03/2018 11:19:51 Fur Sorter: Shannan Morales FW,[facility] FWMammogram BI-RADS: Post-procedure mammogram for marker placementBREAST ULTRASOUND [id number] 12:37:42 - DIAG MAMM BILATERAL BETTY CAD DIGITALBILATERAL DIGITAL DIAGNOSTIC MAMMOGRAM 3D/2D WITH CAD: 07/07/2018CLINICAL: Abnormal clinical breast exam. Digital breast tomosynthesis was performed in addition toroutine CC and MLO views. Current mammographic images were evaluated by either a [employer] M-Vu or a [employer] Airer CAD (computer aided detection system). Comparison is made to exams dated 05/20/2017mammogram - [facility] and 03/31/2010 mammogram - [facility] [address]. The tissue of both breasts is heterogeneously dense. This may lower the sensitivity of mammography. Scattered, subcentimeter, focal asymmetries are seen bilaterally. Ultrasound will be performed later today for further evaluation.INCOMPLETE ASSESSMENT: ADDITIONAL IMAGING EVALUATION RECOMMENDEDUltrasound will be performed later today for further evaluation.- BREAST ULTRASOUND BILATERALULTRASOUND OF BOTH BREASTS AND BOTH AXILLA: 07/07/2018Comparison is made to exams dated 05/20/2017 mammogram - [facility] and 03/31/2010 mammogram - [facility] [address]. Real-time ultrasound of both breasts and both axilla was performed. RIGHT BREAST: There is a 9 x 3 x 6 mm heterogeneous complicated cyst/complex c ystic and solid mass in the right breast at 12 o'clock, 6 cm from the nipple. Mild peripheral vascularity is identified. Scattered simple cysts are seen throughout the right breast. Ultrasound of the axilla is unremarkable.LEFT BREAST: Scattered cysts are seen throughout the left breast. Ultrasound ofthe left axilla is unremarkable.IMPRESSION: SUSPICIOUS OF MALIGNANCY - FOLLOW-UP RECOMMENDEDRIGHT BREAST: The 9 x 3 x 6 mm complicated cyst/complex cystic and solid mass in the right breast at 12 o'clock, 6 cm from the nipple, is at a low suspicion for malignancy. An ultrasound guided biopsy is recommended. Results were discussed with the patient.Katheryn Leone M.D. ar/:07/07/2018 12:37:42 Attending Technologist: Claudia VASQUEZ, [facility]FWImaging Technologist: Trinh VASQUEZ, [facility]letter sent: BIRADS 4/5 Biopsy Mammogram BI-RADS: 0 Indeterminate Ultrasound BI-RADS: 4a Suspicious abnormality - low suspicion for malignancyDIAG MAMM BILATERAL BETTY CAD DIGITAL 2018-07-07 12:37:42 - DIAG MAMM BILATERAL BETTY CAD DIGITALBILATERAL DIGITAL DIAGNOSTIC MAMMOGRAM 3D/2D WITH CAD: 07/07/2018CLINICAL: Abnormal clinical breast exam. Digital breast tomosynthesis was performed in addition toroutine CC and MLO views. Current mammographic images were evaluated by either a [employer] M-Vu or a [employer] ImageChecker CAD (computer aided detection system). Comparison is made to exams dated 05/20/2017mammogram - [facility] and 03/31/2010 mammogram - [facility] [address]. The tissue of both breasts is heterogeneously dense. This may lower the sensitivity of mammography. Scattered, subcentimeter, focal asymmetries are seen bilaterally. Ultrasound will be performed later today for further evaluation.INCOMPLETE ASSESSMENT: ADDITIONAL IMAGING EVALUATION RECOMMENDEDUltrasound will be performed later today for further evaluation.- BREAST ULTRASOUND BILATERALULTRASOUND OF BOTH BREASTS AND BOTH AXILLA: 07/07/2018Comparison is made to exams dated 05/20/2017 mammogram - [facility] and 03/31/2010 mammogram - [facility] [address]. Real-time ultrasound of both breasts and both axilla was performed. RIGHT BREAST: There is a 9 x 3 x 6 mm heterogeneous complicated cyst/complexcystic and solid mass in the right breast at 12 o'clock, 6 cm from the nipple. Mild peripheral vascul arity is identified. Scattered simple cysts are seen throughout the right breast. Ultrasound of the axilla is unremarkable.LEFT BREAST: Scattered cysts are seen throughout the left breast. Ultrasound of the left axilla is unremarkable.IMPRESSION: SUSPICIOUS OF MALIGNANCY - FOLLOW-UP RECOMMENDEDRIGHT BREAST: The 9 x 3 x 6 mm complicated cyst/complex cystic and solid mass in the right breast at 12 o'clock, 6 cm from the nipple, is at a low suspicion for malignancy. An ultrasound guided biopsy is recommended. Results were discussed with the patient.Katheryn Leone M.D. ar/:07/07/2018 12:37:42 Attending Technologist: Claudia VASQUZE, [facility]FWImaging Technologist: Trinh VASQUEZ, [facility]FWletter sent: BIRADS 4/5 Biopsy Mammogram BI-RADS: 0 Indeterminate Ultrasound BI-RADS: 4a Suspicious abnormality - low suspicion for malignancyPAP TEST, THINPREP, [id number] 00:00:00 Test Item Value Reference Range Interpretation Comments SOURCE: (test code = Cervical/Endocervical 8001) SLIDES: (test code = 1 8011) LMP: (test code = 8021) 06/11/2018 SPECIMEN ADEQUACY: (NOTE) (test code = 65896) INTERPRETATION: (test NILM/NO EPITH. code = 37855) ABNORMALITY;SEE BELOW MD PEDIATRIC ALLERGIST: (test Mike Hoyt code = 8101) QC TECHNOLOGIST: (test Ez code = 8111) ROX Lopez(ASCP)IAC LOCATION: (test code = (NOTE) 14477) CPT: (test code = 8140) (NOTE) PAP TEST, THINPREP, [id number] 00:00:00 Test Item Value Reference Range Interpretation Comments SOURCE: (test code = Cervical/Endocervical 8001) SLIDES: (test code = 1 8011) LMP: (test code = 8021) 06/11/2018 SPECIMEN ADEQUACY: (NOTE) (test code = 84434) INTERPRETATION: (test NILM/NO EPITH. code = 02794) ABNORMALITY;SEE BELOW MD PEDIATRIC ALLERGIST: (test Mike Hoyt code = 8101) QC TECHNOLOGIST: (test Ez code = 8111) ROX Lopez(ASCP)IAC LOCATION: (test code = (NOTE) 36895) CPT: (test code = 8140) (NOTE) PAP TEST, THINPREP, [id number] 00:00:00 Test Item Value Reference Range Interpretation Comments SOURCE: (test code = Cervical/Endocervical 8001) SLIDES: (test code = 1 8011) LMP: (test code = 8021) 06/11/2018 SPECIMEN ADEQUACY: (NOTE) (test code = 68096) INTERPRETATION: (test NILM/NO EPITH. code = 47959) ABNORMALITY;SEE BELOW MD PEDIATRIC ALLERGIST: (test Mike Hoyt code = 8101) QC TECHNOLOGIST: (test Ez code = 8111) ROX Lopez(ASCP)IAC LOCATION: (test code = (NOTE) 09244) CPT: (test code = 8140) (NOTE) CULTURE, [id number] 00:00:00 Test Item Value Reference Range Interpretation Comments CULTURE, URINE (test SPECIMEN NUMBER: code = 81183) [id number] CULTURE, [id number] 00:00:00 Test Item Value Reference Range Interpretation Comments CULTURE, URINE (test SPECIMEN NUMBER: code = 12748) [id number] CULTURE, [id number] 00:00:00 Test Item Value Reference Range Interpretation Comments CULTURE, URINE (test SPECIMEN NUMBER: code = 12408) [id number] ACUTE HEPATITIS [id number] 00:00:00 Test Item Value Reference Range Interpretation Comments HEPATITIS A IgM (test code = NON-REACTIVE 11371) HEPATITIS B CORE IgM (test code NON-REACTIVE = 4644) HEPATITIS B SURF AG (test code = NON-REACTIVE 2739) HEPATITIS C ANTIBODY (test code NON-REACTIVE = 4675) HCV INDEX (test code = 86117) 0.12 INTERPRETATION HEPATITIS A: (NOTE) (test code = 2552) INTERPRETATION HEPATITIS B: (NOTE) (test code = 52230) INTERPRETATION HEPATITIS C: (NOTE) (test code = 32222) GC AND CHLAMYDIA AMPLIFIED, [id number] 00:00:00 Test Item Value Reference Range Interpretation Comments GONORRHEA, TMA (test code = 66742) NEGATIVE CHLAMYDIA, TMA (test code = 66622) NEGATIVE ACUTE HEPATITIS [id number] 00:00:00 Test Item Value Reference Range Interpretation Comments HEPATITIS A IgM (test code = NON-REACTIVE 55272) HEPATITIS B CORE IgM (test code NON-REACTIVE = 4644) HEPATITIS B SURF AG (test code = NON-REACTIVE 2739) HEPATITIS C ANTIBODY (test code NON-REACTIVE = 4675) HCV INDEX (test code = 67170) 0.12 INTERPRETATION HEPATITIS A: (NOTE) (test code = 2552) INTERPRETATION HEPATITIS B: (NOTE) (test code = 67864) INTERPRETATION HEPATITIS C: (NOTE) (test code = 26493) ACUTE HEPATITIS [id number] 00:00:00 Test Item Value Reference Range Interpretation Comments HEPATITIS A IgM (test code = NON-REACTIVE 45369) HEPATITIS B CORE IgM (test code NON-REACTIVE = 4644) HEPATITIS B SURF AG (test code = NON-REACTIVE 2739) HEPATITIS C ANTIBODY (test code NON-REACTIVE = 4675) HCV INDEX (test code = 51275) 0.12 INTERPRETATION HEPATITIS A: (NOTE) (test code = 2552) INTERPRETATION HEPATITIS B: (NOTE) (test code = 82652) INTERPRETATION HEPATITIS C: (NOTE) (test code = 53690) GC AND CHLAMYDIA AMPLIFIED, [id number] 00:00:00 Test Item Value Reference Range Interpretation Comments GONORRHEA, TMA (test code = 03956) NEGATIVE CHLAMYDIA, TMA (test code = 63331) NEGATIVE GC AND CHLAMYDIA AMPLIFIED, [id number] 00:00:00 Test Item Value Reference Range Interpretation Comments GONORRHEA, TMA (test code = 36803) NEGATIVE CHLAMYDIA, TMA (test code = 11694) NEGATIVE HIV AB/AG COMBO RFLX [id number] 00:00:00 Test Item Value Reference Range Interpretation Comments HIV 1/2 4TH GEN, RFLX CONF (test NON-REACTIVE code = 3514) HIV AB/AG COMBO RFLX [id number] 00:00:00 Test Item Value Reference Range Interpretation Comments HIV 1/2 4TH GEN, RFLX CONF (test NON-REACTIVE code = 3514) [id number] 00:00:00 Test Item Value Reference Range Interpretation Comments RPR RESULT (test code = NON-REACTIVE 3501) RPR TITER (test code = 3500) NOT INDIC. TITER [id number] 00:00:00 Test Item Value Reference Range Interpretation Comments RPR RESULT (test code = NON-REACTIVE 3501) RPR TITER (test code = 3500) NOT INDIC. TITER HPV HIGH RISK WITH GENOTYPE, [id number] 00:00:00 Test Item Value Reference Range Interpretation Comments HPV HIGH RISK INTERP (test code = NEGATIVE 31479) HPV 16 (test code = 69474) NEGATIVE HPV 18 (test code = 33604) NEGATIVE HPV, HR, OTHER GENOTYPES (test code NEGATIVE = 42217) [id number] 00:00:00 Test Item Value Reference Range Interpretation Comments RPR RESULT (test code = NON-REACTIVE 3501) RPR TITER (test code = 3500) NOT INDIC. TITER HPV HIGH RISK WITH GENOTYPE, [id number] 00:00:00 Test Item Value Reference Range Interpretation Comments HPV HIGH RISK INTERP (test code = NEGATIVE 52264) HPV 16 (test code = 29083) NEGATIVE HPV 18 (test code = 33654) NEGATIVE HPV, HR, OTHER GENOTYPES (test code NEGATIVE = 49952) HIV AB/AG COMBO RFLX [id number] 00:00:00 Test Item Value Reference Range Interpretation Comments HIV 1/2 4TH GEN, RFLX CONF (test NON-REACTIVE code = 3514) [id number] 00:00:00 Test Item Value Reference Range Interpretation Comments RPR RESULT (test code = NON-REACTIVE 3501) RPR TITER (test code = 3500) NOT INDIC. TITER [id number] 00:00:00 Test Item Value Reference Range Interpretation Comments RPR RESULT (test code = NON-REACTIVE 3501) RPR TITER (test code = 3500) NOT INDIC. TITER HPV HIGH RISK WITH GENOTYPE, [id number] 00:00:00 Test Item Value Reference Range Interpretation Comments HPV HIGH RISK INTERP (test code = NEGATIVE 59620) HPV 16 (test code = 42180) NEGATIVE HPV 18 (test code = 37703) NEGATIVE HPV, HR, OTHER GENOTYPES (test code NEGATIVE = 10453) SURGICAL PATHOLOGY [id number] 00:00:00 Test Item Value Reference Range Interpretation Comments DIAGNOSIS: (test code = 8200) (NOTE) COMMENTS: (test code = 8205) (NOTE) MICROSCOPIC DESCRIPTION: (test code = (NOTE) 8210) CLINICAL DATA: (test code = 8401) (NOTE) GROSS DESCRIPTION: (test code = 8220) (NOTE) PATHOLOGIST: (test code = 8250) (NOTE) CPT: (test code = 8400) (NOTE) SURGICAL PATHOLOGY [id number] 00:00:00 Test Item Value Reference Range Interpretation Comments DIAGNOSIS: (test code = 8200) (NOTE) COMMENTS: (test code = 8205) (NOTE) MICROSCOPIC DESCRIPTION: (test code = (NOTE) 8210) CLINICAL DATA: (test code = 8401) (NOTE) GROSS DESCRIPTION: (test code = 8220) (NOTE) PATHOLOGIST: (test code = 8250) (NOTE) CPT: (test code = 8400) (NOTE) SURGICAL PATHOLOGY [id number] 00:00:00 Test Item Value Reference Range Interpretation Comments DIAGNOSIS: (test code = 8200) (NOTE) COMMENTS: (test code = 8205) (NOTE) MICROSCOPIC DESCRIPTION: (test code = (NOTE) 8210) CLINICAL DATA: (test code = 8401) (NOTE) GROSS DESCRIPTION: (test code = 8220) (NOTE) PATHOLOGIST: (test code = 8250) (NOTE) CPT: (test code = 8400) (NOTE) PAP TEST, THINPREP, [id number] 00:00:00 Test Item Value Reference Range Interpretation Comments SOURCE: (test code = Cervical/Endocervical 8001) SLIDES: (test code = 1 8011) LMP: (test code = 8021) 2017-04-29 SPECIMEN ADEQUACY: (test (NOTE) code = 45068) INTERPRETATION: (test EPITHELIAL code = 65488) ABNORMALITY SEE BELOW OTHER COMMENTS: (test (NOTE) code = 8081) MD PEDIATRIC ALLERGIST: (test REZWAN code = 8101) ROX MARQUEZ(ASCP)IAC QC TECHNOLOGIST: (test Ez code = 8111) ROX Lopez(ASCP)[facility] PATHOLOGIST Emily Wren INTERPRETATION BY: (test code = 8122) LOCATION: (test code = (NOTE) 78011) CPT: (test code = 8140) (NOTE) PAP TEST, THINPREP, [id number] 00:00:00 Test Item Value Reference Range Interpretation Comments SOURCE: (test code = Cervical/Endocervical 8001) SLIDES: (test code = 1 8011) LMP: (test code = 8021) 2017-04-29 SPECIMEN ADEQUACY: (test (NOTE) code = 36776) INTERPRETATION: (test EPITHELIAL code = 94143) ABNORMALITY SEE BELOW OTHER COMMENTS: (test (NOTE) code = 8081) MD PEDIATRIC ALLERGIST: (test REZWAN code = 8101) ROX MARQUEZ(ASCP)IAC QC TECHNOLOGIST: (test Ez code = 8111) ROX Lopez(ASCP)[facility] PATHOLOGIST Emily Wren INTERPRETATION BY: (test code = 8122) LOCATION: (test code = (NOTE) 93644) CPT: (test code = 8140) (NOTE) PAP TEST, THINPREP, [id number] 00:00:00 Test Item Value Reference Range Interpretation Comments SOURCE: (test code = Cervical/Endocervical 8001) SLIDES: (test code = 1 8011) LMP: (test code = 8021) 2017-04-29 SPECIMEN ADEQUACY: (test (NOTE) code = 20202) INTERPRETATION: (test EPITHELIAL code = 35775) ABNORMALITY SEE BELOW OTHER COMMENTS: (test (NOTE) code = 8081) MD PEDIATRIC ALLERGIST: (test REZWAN code = 8101) ROX MARQUEZ(ASCP)[facility] QC TECHNOLOGIST: (test Ez code = 8111) ROX Lopez(ASCP)[facility] PATHOLOGIST Emily Wren INTERPRETATION BY: (test code = 8122) LOCATION: (test code = (NOTE) 88814) CPT: (test code = 8140) (NOTE) GC AND CHLAMYDIA AMPLIFIED, [id number] 00:00:00 Test Item Value Reference Range Interpretation Comments GONORRHEA, TMA (test code = 17434) NEGATIVE CHLAMYDIA, TMA (test code = 75134) NEGATIVE GC AND CHLAMYDIA AMPLIFIED, [id number] 00:00:00 Test Item Value Reference Range Interpretation Comments GONORRHEA, TMA (test code = 67086) NEGATIVE CHLAMYDIA, TMA (test code = 50333) NEGATIVE GC AND CHLAMYDIA AMPLIFIED, [id number] 00:00:00 Test Item Value Reference Range Interpretation Comments GONORRHEA, TMA (test code = 68386) NEGATIVE CHLAMYDIA, TMA (test code = 37569) NEGATIVE CULTURE, [id number] 00:00:00 Test Item Value Reference Range Interpretation Comments CULTURE, URINE (test SPECIMEN NUMBER: code = 05663) [id number] CULTURE, [id number] 00:00:00 Test Item Value Reference Range Interpretation Comments CULTURE, URINE (test SPECIMEN NUMBER: code = 93130) [id number] CULTURE, [id number] 00:00:00 Test Item Value Reference Range Interpretation Comments CULTURE, URINE (test SPECIMEN NUMBER: code = 91653) [id number] HEMOGLOBIN A1c [ADDED]2017-05-11 00:00:00 Test Item Value Reference Range Interpretation Comments HEMOGLOBIN A1c (test code = 58246) 4.9 % HEMOGLOBIN A1c [ADDED]2017-05-11 00:00:00 Test Item Value Reference Range Interpretation Comments HEMOGLOBIN A1c (test code = 66969) 4.9 % HEMOGLOBIN A1c [ADDED]2017-05-11 00:00:00 Test Item Value Reference Range Interpretation Comments HEMOGLOBIN A1c (test code = 65576) 4.9 % CBC W/AUTO DIFF WITH PLATELETS [ADDED]2017-05-11 00:00:00 Test Item Value Reference Range Interpretation Comments WBC (test code = 1001) 9.8 K/UL RBC (test code = 1002) 4.79 M/UL HEMOGLOBIN (test code = 1003) 14.5 G/DL HEMATOCRIT (test code = 1004) 42.7 % MCV (test code = 1005) 89.1 fL MCH (test code = 1006) 30.3 PG MCHC (test code = 1007) 34.0 G/DL RDW (test code = 1038) 11.7 % NEUTROPHILS (test code = 1008) 70.8 % LYMPHOCYTES (test code = 1010) 21.7 % MONOCYTES (test code = 1011) 6.2 % EOSINOPHILS (test code = 1012) 0.7 % BASOPHILS (test code = 1013) 0.6 % PLATELET COUNT (test code = 1015) 344 K/UL HPV HIGH RISK WITH GENOTYPE, [id number] 00:00:00 Test Item Value Reference Range Interpretation Comments HPV HIGH RISK INTERP (test code = POSITIVE 80383) HPV 16 (test code = 22122) NEGATIVE HPV 18 (test code = 87025) NEGATIVE HPV, HR, OTHER GENOTYPES (test code POSITIVE = 34666) CBC W/AUTO DIFF WITH PLATELETS [ADDED]2017-05-11 00:00:00 Test Item Value Reference Range Interpretation Comments WBC (test code = 1001) 9.8 K/UL RBC (test code = 1002) 4.79 M/UL HEMOGLOBIN (test code = 1003) 14.5 G/DL HEMATOCRIT (test code = 1004) 42.7 % MCV (test code = 1005) 89.1 fL MCH (test code = 1006) 30.3 PG MCHC (test code = 1007) 34.0 G/DL RDW (test code = 1038) 11.7 % NEUTROPHILS (test code = 1008) 70.8 % LYMPHOCYTES (test code = 1010) 21.7 % MONOCYTES (test code = 1011) 6.2 % EOSINOPHILS (test code = 1012) 0.7 % BASOPHILS (test code = 1013) 0.6 % PLATELET COUNT (test code = 1015) 344 K/UL CBC W/AUTO DIFF WITH PLATELETS [ADDED]2017-05-11 00:00:00 Test Item Value Reference Range Interpretation Comments WBC (test code = 1001) 9.8 K/UL RBC (test code = 1002) 4.79 M/UL HEMOGLOBIN (test code = 1003) 14.5 G/DL HEMATOCRIT (test code = 1004) 42.7 % MCV (test code = 1005) 89.1 fL MCH (test code = 1006) 30.3 PG MCHC (test code = 1007) 34.0 G/DL RDW (test code = 1038) 11.7 % NEUTROPHILS (test code = 1008) 70.8 % LYMPHOCYTES (test code = 1010) 21.7 % MONOCYTES (test code = 1011) 6.2 % EOSINOPHILS (test code = 1012) 0.7 % BASOPHILS (test code = 1013) 0.6 % PLATELET COUNT (test code = 1015) 344 K/UL HPV HIGH RISK WITH GENOTYPE, [id number] 00:00:00 Test Item Value Reference Range Interpretation Comments HPV HIGH RISK INTERP (test code = POSITIVE 97113) HPV 16 (test code = 72676) NEGATIVE HPV 18 (test code = 89194) NEGATIVE HPV, HR, OTHER GENOTYPES (test code POSITIVE = 17067) COMPREHENSIVE METABOLIC PANEL [ADDED]2017-05-11 00:00:00 Test Item Value Reference Range Interpretation Comments GLUCOSE (test code = 2217) 77 MG/DL BUN (test code = 2208) 8 MG/DL CREATININE (test code = 2214) 0.63 MG/DL eGFR AMER. (test code 122 ML/MIN/1.73 = 70025) eGFR NON- AMER. (test 105 ML/MIN/1.73 code = 93916) CALC BUN/CREAT (test code = 13 RATIO 2235) SODIUM (test code = 2231) 138 MEQ/L POTASSIUM (test code = 2228) 4.8 MEQ/L CHLORIDE (test code = 2215) 101 MEQ/L CARBON DIOXIDE (test code = 20 MEQ/L 2205) CALCIUM (test code = 2209) 8.9 MG/DL PROTEIN, TOTAL (test code = 7.8 G/DL 2228) ALBUMIN (test code = 2201) 4.4 G/DL CALC GLOBULIN (test code = 3.4 G/DL 2240) CALC A/G RATIO (test code = 1.3 RATIO 2234) BILIRUBIN, TOTAL (test code = 0.3 MG/DL 220) ALKALINE PHOSPHATASE (test 131 U/L code = 2204) AST (test code = 2218) 21 U/L ALT (test code = 2219) 15 U/L COMPREHENSIVE METABOLIC PANEL [ADDED]2017-05-11 00:00:00 Test Item Value Reference Range Interpretation Comments GLUCOSE (test code = 2217) 77 MG/DL BUN (test code = 2208) 8 MG/DL CREATININE (test code = 2214) 0.63 MG/DL eGFR AMER. (test code 122 ML/MIN/1.73 = 01123) eGFR NON- AMER. (test 105 ML/MIN/1.73 code = 97286) CALC BUN/CREAT (test code = 13 RATIO 2235) SODIUM (test code = 2231) 138 MEQ/L POTASSIUM (test code = 2228) 4.8 MEQ/L CHLORIDE (test code = 2215) 101 MEQ/L CARBON DIOXIDE (test code = 20 MEQ/L 2205) CALCIUM (test code = 2209) 8.9 MG/DL PROTEIN, TOTAL (test code = 7.8 G/DL 2228) ALBUMIN (test code = 2201) 4.4 G/DL CALC GLOBULIN (test code = 3.4 G/DL 2240) CALC A/G RATIO (test code = 1.3 RATIO 2234) BILIRUBIN, TOTAL (test code = 0.3 MG/DL 2207) ALKALINE PHOSPHATASE (test 131 U/L code = 2204) AST (test code = 2218) 21 U/L ALT (test code = 2219) 15 U/L LIPID PANEL [ADDED]2017-05-11 00:00:00 Test Item Value Reference Range Interpretation Comments CHOLESTEROL (test code = 2210) 237 MG/DL TRIGLYCERIDES (test code = 2232) 409 MG/DL HDL CHOLESTEROL (test code = 49 MG/DL 2220) CALC LDL CHOL (test code = 2237) NOTE MG/DL RISK RATIO LDL/HDL (test code = (NOTE) RATIO 2238) LIPID PANEL [ADDED]2017-05-11 00:00:00 Test Item Value Reference Range Interpretation Comments CHOLESTEROL (test code = 2210) 237 MG/DL TRIGLYCERIDES (test code = 2232) 409 MG/DL HDL CHOLESTEROL (test code = 49 MG/DL 2220) CALC LDL CHOL (test code = 2237) NOTE MG/DL RISK RATIO LDL/HDL (test code = (NOTE) RATIO 2238) TSH [ADDED]2017-05-11 00:00:00 Test Item Value Reference Range Interpretation Comments TSH (test code = 2821) 4.530 UIU/ML TSH [ADDED]2017-05-11 00:00:00 Test Item Value Reference Range Interpretation Comments TSH (test code = 2821) 4.530 UIU/ML TSH [ADDED]2017-05-11 00:00:00 Test Item Value Reference Range Interpretation Comments TSH (test code = 2821) 4.530 UIU/ML HEMOGLOBIN A1c [ADDED]2017-05-11 00:00:00 Test Item Value Reference Range Interpretation Comments HEMOGLOBIN A1c (test code = 31839) 4.9 % HEMOGLOBIN A1c [ADDED]2017-05-11 00:00:00 Test Item Value Reference Range Interpretation Comments HEMOGLOBIN A1c (test code = 09572) 4.9 % CBC W/AUTO DIFF WITH PLATELETS [ADDED]2017-05-11 00:00:00 Test Item Value Reference Range Interpretation Comments WBC (test code = 1001) 9.8 K/UL RBC (test code = 1002) 4.79 M/UL HEMOGLOBIN (test code = 1003) 14.5 G/DL HEMATOCRIT (test code = 1004) 42.7 % MCV (test code = 1005) 89.1 fL MCH (test code = 1006) 30.3 PG MCHC (test code = 1007) 34.0 G/DL RDW (test code = 1038) 11.7 % NEUTROPHILS (test code = 1008) 70.8 % LYMPHOCYTES (test code = 1010) 21.7 % MONOCYTES (test code = 1011) 6.2 % EOSINOPHILS (test code = 1012) 0.7 % BASOPHILS (test code = 1013) 0.6 % PLATELET COUNT (test code = 1015) 344 K/UL CBC W/AUTO DIFF WITH PLATELETS [ADDED]2017-05-11 00:00:00 Test Item Value Reference Range Interpretation Comments WBC (test code = 1001) 9.8 K/UL RBC (test code = 1002) 4.79 M/UL HEMOGLOBIN (test code = 1003) 14.5 G/DL HEMATOCRIT (test code = 1004) 42.7 % MCV (test code = 1005) 89.1 fL MCH (test code = 1006) 30.3 PG MCHC (test code = 1007) 34.0 G/DL RDW (test code = 1038) 11.7 % NEUTROPHILS (test code = 1008) 70.8 % LYMPHOCYTES (test code = 1010) 21.7 % MONOCYTES (test code = 1011) 6.2 % EOSINOPHILS (test code = 1012) 0.7 % BASOPHILS (test code = 1013) 0.6 % PLATELET COUNT (test code = 1015) 344 K/UL HPV HIGH RISK WITH GENOTYPE, [id number] 00:00:00 Test Item Value Reference Range Interpretation Comments HPV HIGH RISK INTERP (test code = POSITIVE 81759) HPV 16 (test code = 13255) NEGATIVE HPV 18 (test code = 19740) NEGATIVE HPV, HR, OTHER GENOTYPES (test code POSITIVE = 82226) COMPREHENSIVE METABOLIC PANEL [ADDED]2017-05-11 00:00:00 Test Item Value Reference Range Interpretation Comments GLUCOSE (test code = 2217) 77 MG/DL BUN (test code = 2208) 8 MG/DL CREATININE (test code = 2214) 0.63 MG/DL eGFR AMER. (test code 122 ML/MIN/1.73 = 94721) eGFR NON- AMER. (test 105 ML/MIN/1.73 code = 21167) CALC BUN/CREAT (test code = 13 RATIO 2235) SODIUM (test code = 2231) 138 MEQ/L POTASSIUM (test code = 2228) 4.8 MEQ/L CHLORIDE (test code = 2215) 101 MEQ/L CARBON DIOXIDE (test code = 20 MEQ/L 220) CALCIUM (test code = 2209) 8.9 MG/DL PROTEIN, TOTAL (test code = 7.8 G/DL 2228) ALBUMIN (test code = 2201) 4.4 G/DL CALC GLOBULIN (test code = 3.4 G/DL 2240) CALC A/G RATIO (test code = 1.3 RATIO 2234) BILIRUBIN, TOTAL (test code = 0.3 MG/DL 2206) ALKALINE PHOSPHATASE (test 131 U/L code = 2204) AST (test code = 2218) 21 U/L ALT (test code = 2219) 15 U/L LIPID PANEL [ADDED]2017-05-11 00:00:00 Test Item Value Reference Range Interpretation Comments CHOLESTEROL (test code = 2210) 237 MG/DL TRIGLYCERIDES (test code = 2232) 409 MG/DL HDL CHOLESTEROL (test code = 49 MG/DL 2219) CALC LDL CHOL (test code = 2237) NOTE MG/DL RISK RATIO LDL/HDL (test code = (NOTE) RATIO 2238) TSH [ADDED]2017-05-11 00:00:00 Test Item Value Reference Range Interpretation Comments TSH (test code = 2821) 4.530 UIU/ML TSH [ADDED]2017-05-11 00:00:00 Test Item Value Reference Range Interpretation Comments TSH (test code = 2821) 4.530 UIU/ML
[2023-02-11] MEDS ORDERED: ASPIRIN 81 MG CHEWABLE TABLET ONE (03:06)
[2023-02-11] MEDS ORDERED: LORazepam 2 MG/ML VIAL ONE (03:07)
[2023-02-11 03:09] LABS: Absolute Lymphocytes (CBC) 1.8 K/uL (0.7-4.9); Hematocrit 39.2 % (36.0-45.0); Lymphocytes % 20.1 % (15.3-44.8); MCV 87.2 fL (80-100); MPV 7.4 fL (7.6-11.3); Platelets 371 thou/uL (152-406); RBC Red Blood Cell Count 4.49 M/uL (3.86-4.86)
[2023-02-11 03:18] LABS: Protime INR 1.14
[2023-02-11 03:39] LABS: Albumin 3.8 g/dL (3.4-5.0); Bilirubin Direct 0.1 mg/dL (0-0.2); Bilirubin Indirect, Calculated 0.4 mg/dL (0.2-0.8); Bilirubin Total 0.5 mg/dL (0.2-1.0); Magnesium 1.8 mg/dL (1.6-2.4); Potassium 3.1 mEq/L (3.5-5.1); Protein, Total 7.8 g/dL (6.4-8.2); Troponin High Sensitivity 4.3 pg/mL (<58.9)
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
[2023-02-11 05:42] VITALS: TEMP 97.9
[2023-02-11 05:45] VITALS: BP 107/74; O2SAT 100
--- NOTE | 2023-02-11 15:21 | EKG ---
Test Date: 2023-02-11 Test Time: 02:41:32 Drag Seiner: RV MEASUREMENT RESULTS: Intervals: Rate: 82 OK: 142 QRSD: 72 QT: 370 QTc: 432 [place]: P: 46 OK: 142 QRS: 55 T: 23 INTERPRETIVE STATEMENTS: Normal sinus rhythm Normal ECG Compared to ECG 04/06/2014 02:58:12 No significant changes Electronically Signed On 02-11-23 15:20:35 CDT by Ad Marie
--- NOTE | 2023-02-11 18:37 | RAD REPORT ---
EXAM DESCRIPTION: RAD - Chest Single View - 02/11/2023 3:33 am CLINICAL HISTORY: 53 years Female CHEST PAIN COMPARISON: None FINDINGS: Lung volumes diminished. Bronchovascular crowding. Cardiac silhouette is normal in size. No pneumothorax. No large pleural effusion. No focal consolidation. No acute bony finding. IMPRESSION: 1. No acute cardiopulmonary findings. 2. Low lung volumes with associated hypoventilatory changes. Electronically signed by: Cheryl Chatman MD 02/11/2023 3:41 AM CDT Due to temporary technical issues with the PACS/Fluency reporting system, reports are being signed by the in house radiologists without review as a courtesy to insure prompt reporting. The interpreting radiologist is fully responsible for the content of the report.
== END 2023-02-11 05:32 | disposition home or self-care (01) ==
LOC: ER 02:33
DX: F41.0 Panic disorder [episodic paroxysmal anxiety] (principal); R55 Syncope and collapse
CPT/HCPCS: 36415; 71045; 80048; 80076; 83735; 83880; 84484; 85025; 85610; 93005; 96374; 99284

== ENCOUNTER 2024-05-16 00:41 | Emergency (ER) | payer OTHER, SELFPAY ==
--- OUTSIDE RECORDS SUMMARY | 2024-05-16 00:45 | XMS REPORT | Continuity of Care Document ---
Author Name Unknown Address [address] [facility]. [address] [place] [address] [facility] Address [address] [facility] [address] [place] [address] Care Team Providers Care Production Clerks Supervisor Name Role Phone Jeremias FORD, [facility] Primary Care Physician [phone] SERVICE, DOCTOR REVIEW Attending Clinician Darrius Rene Attending Clinician Unavailable Phil Attending Clinician Unavaila ble SERVICE, DOCTOR REVIEW Admitting Clinician Nallely marion KNOW, DOES_NOT Admitting Clinician Unavailable Phil Admitting Clinician Unavaila ble Payers Payer Name Policy Type Policy Number Effective Date Expirati on Date Source Problems Condition Name Condition Details Condition Category Status Onset Date Resolution Date Last Treatment Date Treating Clinician Comments Source Peroneal tendinitis of right lower limb Peroneal Tendinitis of Right Lower Limb Problem Active 08-03 00:00: 00 [facility] Sprain of right ankle Sprain of Right Ankle Problem Active 2021-06 0- 00:00: 00 [facility] Allergies, Adverse Reactions, Alerts Allergy Name Allergy Type Status Severity Reaction(s) Onset Date Inactive Date Treating Clinician Comments Source [place] - Intraven ous Propensi ty to adverse reaction to drug Active 6 00:00: 00 Social History Smoking Status Start Date Stop Date Source Never Smoker [facility] Medications Ordered Medication Name Filled Medication Name Start Date Stop Date Current Medication? Ordering Clinician Indication Dosage Frequency Signature (SIG) Comments Components Source TAKE 1 TABLET BY MOUTH EVERY 12 HOURS 8 00:00: 00 No 500 Dose Unknown 09-09 00:00: 00 No polyethylen e glycol 3350 17 gram oral powder packet 09-07 00:00: 00 No 1gram Bactrim DS 800 mg-160 mg tablet 12-05 00:00: 00 No 1mg Diflucan 150 mg tablet 2016-06 00:00: 00 No 1mg diclofenac sodium 75 mg tablet,manuelito yed release TAKE 1 TABLET BY MOUTH TWICE DAILY NEEDED WITH FOOD, NOT ON AM EMPTY STOMACH diclofenac sodium 75 mg tablet,manuelito yed release TAKE 1 TABLET BY MOUTH TWICE DAILY NEEDED WITH FOOD, NOT ON AM EMPTY STOMACH No diclofenac sodium 75 mg tablet,del ayed release TAKE 1 TABLET BY MOUTH TWICE DAILY NEEDED WITH FOOD, NOT ON AM EMPTY STOMACH [facility] naproxen 500 mg tablet TAKE 1 TABLET BY MOUTH EVERY 12 HOURS naproxen 500 mg tablet TAKE 1 TABLET BY MOUTH EVERY 12 HOURS No naproxen 500 mg tablet TAKE 1 TABLET BY MOUTH EVERY 12 HOURS [facility] diclofenac sodium 75 mg tablet,manuelito yed release TAKE 1 TABLET BY MOUTH TWICE DAILY NEEDED WITH FOOD, NOT ON AM EMPTY STOMACH diclofenac sodium 75 mg tablet,manuelito yed release TAKE 1 TABLET BY MOUTH TWICE DAILY NEEDED WITH FOOD, NOT ON AM EMPTY STOMACH No diclofenac sodium 75 mg tablet,del ayed release TAKE 1 TABLET BY MOUTH TWICE DAILY NEEDED WITH FOOD, NOT ON AM EMPTY STOMACH [facility] naproxen 500 mg tablet TAKE 1 TABLET BY MOUTH EVERY 12 HOURS naproxen 500 mg tablet TAKE 1 TABLET BY MOUTH EVERY 12 HOURS No naproxen 500 mg tablet TAKE 1 TABLET BY MOUTH EVERY 12 HOURS [facility] diclofenac sodium 75 mg tablet,manuelito yed release TAKE 1 TABLET BY MOUTH TWICE DAILY NEEDED WITH FOOD, NOT ON AM EMPTY STOMACH diclofenac sodium 75 mg tablet,manuelito yed release TAKE 1 TABLET BY MOUTH TWICE DAILY NEEDED WITH FOOD, NOT ON AM EMPTY STOMACH No diclofenac sodium 75 mg tablet,del ayed release TAKE 1 TABLET BY MOUTH TWICE DAILY NEEDED WITH FOOD, NOT ON AM EMPTY STOMACH [facility] naproxen 500 mg tablet TAKE 1 TABLET BY MOUTH EVERY 12 HOURS naproxen 500 mg tablet TAKE 1 TABLET BY MOUTH EVERY 12 HOURS No naproxen 500 mg tablet TAKE 1 TABLET BY MOUTH EVERY 12 HOURS [facility] Vital Signs Vital Name Observation Time Observation Value Comments S ource BP Systolic 2022-02-03 10:40:00 115 mm[Hg] BP [...] Procedures Procedure Date / Time Performed Performing Clinicia n Source XR, ankle, 3 or more view 2022-04-06 00:00:00 [facility] MRI, ankle, w/o contrast 2022-04-06 00:00:00 [facility] [id number] Colposcopy Cervix Bx Cervix endocrv Curtg 2017-07-07 00:00:00 Plan of Care Planned Activity Planned Date Details Comments Source Goal Plan of Care Not e [code = 39597-9] Goal Plan of Care Not e [code = 62044-6] Goal Plan of Care Not e [code = 18051-7] Goal Plan of Care Not e [code = 32271-4] Goal Plan of Care Not e [code = 67102-9] Goal Plan of Care Not e [code = 82961-6] Goal Plan of Care Not e [code = 38000-1] Goal Plan of Care Not e [code = 56064-0] Goal Plan of Care Not e [code = 18515-1] Goal Plan of Care Not e [code = 49805-0] Goal Plan of Care Not e [code = 29031-4] Goal Plan of Care Not e [code = 03514-0] Goal Plan of Care Not e [code = 08151-7] Goal Plan of Care Not e [code = 99709-8] Goal Plan of Care Not e [code = 82491-0] Goal Plan of Care Not e [code = 59689-4] Goal Plan of Care Not e [code = 75430-0] Goal Plan of Care Not e [code = 41430-1] Goal Plan of Care Not e [code = 88871-5] Goal Plan of Care Not e [code = 31926-6] Goal Plan of Care Not e [code = 64958-3] Goal Plan of Care Not e [code = 60703-2] Goal Plan of Care Not e [code = 58238-8] Goal Plan of Care Not e [code = 54691-4] Goal Plan of Care Not e [code = 73562-6] Goal Plan of Care Not e [code = 33300-3] Goal Plan of Care Not e [code = 48442-1] Goal Plan of Care Not e [code = 63874-3] Goal Plan of Care Not e [code = 05288-3] Goal Plan of Care Not e [code = 28938-1] Goal Plan of Care Not e [code = 04926-6] Goal Plan of Care Not e [code = 21815-3] Goal Plan of Care Not e [code = 06370-7] Goal Plan of Care Not e [code = 85173-0] Goal Plan of Care Not e [code = 64916-3] Goal Plan of Care Not e [code = 30629-4] Goal Plan of Care Not e [code = 23324-0] Goal Plan of Care Not e [code = 85435-0] Goal Plan of Care Not e [code = 37892-8] Goal Plan of Care Not e [code = 11999-8] Goal Plan of Care Not e [code = 66802-1] Goal Plan of Care Not e [code = 21620-6] Goal Plan of Care Not e [code = 14286-5] Goal Plan of Care Not e [code = 67447-4] Goal Plan of Care Not e [code = 45501-6] Goal Plan of Care Not e [code = 14309-8] Goal Plan of Care Not e [code = 84681-0] Goal Plan of Care Not e [code = 13680-2] Goal Plan of Care Not e [code = 07151-0] Goal Plan of Care Not e [code = 62015-8] Goal Plan of Care Not e [code = 05540-6] Goal Plan of Care Not e [code = 77537-5] Goal Plan of Care Not e [code = 22279-5] Goal Plan of Care Not e [code = 48125-5] Goal Plan of Care Not e [code = 55771-1] Goal Plan of Care Not e [code = 12902-5] Goal Plan of Care Not e [code = 72091-0] Goal Plan of Care Not e [code = 41183-6] Goal Plan of Care Not e [code = 93479-1] Instructions [facility] Encounters Start Date/Time End Date/Time Encounter Type Admission Type Attending [facility] Care Facility Care Department Encounter ID Source 2022-07-07 15:31:00 Inpatient EL SERVICE, DOCTOR [facility] [id number] [facility] 2024-02-03 10:47:32 2024-02-03 10:47:[address] [facility] [id number] Ez Frias 2023-08-09 09:24:05 2023-08-09 09:24:05 Outpatient [facility] [id number] [address] Frias 2023-08-08 08:42:00 2023-08-08 08:42:00 Outpatient [facility] [id number] [address] Frias 2022-08-04 00:00:00 2022-08-04 00:00:00 Darrius Whitlock MD: [address] [place] [address] , Ph. [phone] [facility] [place] [facility] [address] [id number] [facility] 2022-07-14 11:00:00 2022-07-14 11:00:00 Inpatient EL Kamlesh Darrius HCATO RADI [id number] [address] [facility] 2022-07-05 00:00:00 2022-07-05 00:00:00 Outpatient [facility] [place] [id number] [facility] 2022-06-30 00:00:00 2022-06-30 00:00:00 Darrius Whitlock MD: [address] [place], [place] [address] , Ph. [phone] [facility] [place] [facility] [address] [id number] [facility] 2022-05-12 00:00:00 2022-05-12 00:00:00 Outpatient [facility]_Acacia Jim[facility]nez AO AO [id number] [facility] 2022-04-06 13:30:00 2022-04-06 13:30:00 Outpatient Darrius WhitlockTO RADI [id number] [address] [facility] 2022-04-06 00:00:00 2022-04-06 00:00:00 Outpatient F[facility]_Acacia Jim[facility]nez [facility] [place] [id number] [facility] 2022-04-06 00:00:00 2022-04-06 00:00:00 Darrius Whitlock MD: [address] [place], [place] [id number] , Ph. [phone] [facility] [place] [facility] [address] [id number] [facility] 2022-03-17 00:00:00 2022-03-17 00:00:00 Outpatient FOG_Acacia Jim[facility]nez [facility] [place] [id number] [facility] 2022-02-03 00:00:00 2022-02-03 00:00:00 Outpatient Visit [id number] 2021-12-07 00:00:00 2021-12-07 00:00:00 Outpatient Visit [id number] Results Test Description Test Time Test Comments Results Result Co mments Source LIPID [id number] 11:26:26* Test Item Value Reference Range Interpretation Comme nts CHOLESTEROL (test code = 2210) 212 MG/DL <200 H TRIGLYCERIDES (test code = 2232) 110 MG/DL <150 HDL CHOLESTEROL (test code = 2220) 61 MG/DL >39 CALC LDL CHOL (test code = 2237) 129 MG/DL <100 H NOTE: CALCULATED LDL IS BASED ON ARTURO-SEVERINO METHOD WHICHINCLUDES ADJUSTABLE TRIGLYCERIDE:VLDL CHOLESTEROL RATIO.THIS FACTOR VARIES BY MEASURED TRIGLYCERIDE AND NON-HDLCHOLESTEROL CONCENTRATIONS WITH INCREASED CALCULATED LDL SEENIN HIGHER TRIGLYCERIDE OR LOWER NON-HDL SPECIMENS. FOR MOREINFORMATION, SEE CLIENT ANNOUNCEMENT AT [email or web address] /CalcLDL-C RISK RATIO LDL/HDL (test code = 2238) 2.11 RATIO <3.22 TSH, THIRD [id number] 11:25:20* Test Item Value Reference Range Interpretation Comme nts TSH, THIRD GENERATION (test code = 2821) 2.130 UIU/ML 0.400-4.100 UNLESS OTHERWISE INDICATED, ALL TESTING PERFORMED AT [facility] [address] [place] [address] ORDER PICKER/ASSEMBLER: MELANIE SANTAMARIA M.D. CLIA NUMBER [id number] [place]. [id number] HEMOGLOBIN [id number] 05:09:16* Test Item Value Reference Range Interpretation Comme nts HEMOGLOBIN A1c (test code = 40061) 5.1 % 4.2-5.6 CBC W/AUTO DIFF WITH [id number] 03:54:41* Test Item Value Reference Range Interpretation Comme nts WBC (test code = 1001) 7.2 K/UL 3.5-11.0 RBC (test code = 1002) 4.78 M/UL 3.80-5.40 HEMOGLOBIN (test code = 1003) 14.5 G/DL 11.5-15.5 HEMATOCRIT (test code = 1004) 43.4 % 34.0-45.0 MCV (test code = 1005) 90.8 fL 80.0-99.0 MCH (test code = 1006) 30.3 PG 25.0-33.0 MCHC (test code = 1007) 33.4 G/DL 31.0-36.0 RDW (test code = 1038) 12.8 % 11.5-15.0 NEUTROPHILS (test code = 1008) 66.1 % LYMPHOCYTES (test code = 1010) 24.5 % MONOCYTES (test code = 1011) 6.7 % EOSINOPHILS (test code = 1012) 1.7 % BASOPHILS (test code = 1013) 0.7 % IMMATURE GRANULOCYTES (test code = 1036) 0.3 % NUCLEATED RBCS (test code = 1065) 0.0 /100 WBC'S See_Comment [Automated messa ge] The system which generated this result transmitted reference range: 0.0. The reference range was not used to interpret this result as normal/abnormal. PLATELET COUNT (test code = 1015) 326 K/UL 130-400 ABSOLUTE NEUTROPHILS (test code = 1066) 4.76 K/UL 1.50-7.50 ABSOLUTE LYMPHOCYTES (test code = 1067) 1.76 K/UL 1.00-4.00 ABSOLUTE MONOCYTES (test code = 1068) 0.48 K/UL 0.20-1.00 ABSOLUTE EOSINOPHILS (test code = 1040) 0.12 K/UL 0.00-0.50 ABSOLUTE BASOPHILS (test code = 1069) 0.05 K/UL 0.00-0.20 ABS IMMATURE GRANULOCYTES (test code = 1020) 0.02 K/UL 0.00-0.10 ABS NUCLEATED RBCS (test code = 65657) 0.00 K/UL 0.00-0.11 HIV 1/2 4TH GEN, RFLX [id number] 06:22:40* Test Item Value Reference Range Interpretation Comme nts HIV 1/2 4TH GEN, RFLX CONF ( test code = 3514) NON-REACTIVE NON-REACTIVE HEPATITIS PANEL, [id number] 06:22:40* Test Item Value Reference Range Interpretation Comme nts HEPATITIS A IgM (test code = 75524) NON-REACTIVE NON-REACTIVE HEPATITIS B CORE IgM (test code = 4644) NON-REACTIVE NON-REACTIVE HEPATITIS B SURF AG (test code = 2739) NON-REACTIVE NON-REACTIVE HEPATITIS C ANTIBODY (test code = 4675) NON-REACTIVE NON-REACTIVE INTERPRETATION HEPATITIS A: (test code = 2552) (NOTE) Hepatitis A sero logy shows no evidence of acute hepatitis A. INTERPRETATION HEPATITIS B: (test code = 60397) (NOTE) Hepatitis B sero logy shows no evidence of acute hepatitis B andno indication of exposure to hepatitis B virus in the previous diamante eight months. INTERPRETATION HEPATITIS C: (test code = 33375) (NOTE) Hepatitis C sero logy shows no evidence of exposure to hepatitisC virus at this time. It can take up to 12 months after exposure tothe hepatitis C virus for antibodies to become detectable in the blood in certain patients. UNLESS OTHERWISE INDICATED, ALL TESTING PERFORMED [facility] [address] [place] [address] ORDER PICKER/ASSEMBLER: NABIL PRIETO M.D. CLIA NUMBER [id number] [facility] [place]. [id number] HEMOGLOBIN [id number] 05:16:18* Test Item Value Reference Range Interpretation Comme [facility] HEMOGLOBIN A1c (test code = 57479) 5.1 % 4.2-5.6 LIPID [id number] 03:50:06* Test Item Value Reference Range Interpretation Comme nts CHOLESTEROL (test code = 2210) 237 MG/DL <200 H TRIGLYCERIDES (test code = 2232) 303 MG/DL <150 H HDL CHOLESTEROL (test code = 2220) 58 MG/DL >39 CALC LDL CHOL (test code = 2237) 136 MG/DL <100 H NOTE: CALCULATED LDL IS BASED ON ARTURO-SEVERINO METHOD WHICHINCLUDES ADJUSTABLE TRIGLYCERIDE:VLDL CHOLESTEROL RATIO.THIS FACTOR VARIES BY MEASURED TRIGLYCERIDE AND NON-HDLCHOLESTEROL CONCENTRATIONS WITH INCREASED CALCULATED LDL SEENIN HIGHER TRIGLYCERIDE OR LOWER NON-HDL SPECIMENS. FOR MOREINFORMATION, SEE CLIENT ANNOUNCEMENT AT [email or web address] /CalcLDL-C RISK RATIO LDL/HDL (test code = 223) 2.34 RATIO <3.22 COMPREHENSIVE METABOLIC [id number] 03:50:06* Test Item Value Reference Range Interpretation Comme nts GLUCOSE (test code = 7) 79 MG/DL 70-99 BUN (test code = 2207) 10 MG/DL 6-20 CREATININE (test code = 221) 0.66 MG/DL 0.60-1.30 eGFR (2020 CKD-EPI) (test code = 48071) 104 ML/MIN/1.73 >60 CALC BUN/CREAT (test code = 223) 15 RATIO 6-28 SODIUM (test code = 223) 140 MEQ/L 133-146 POTASSIUM (test code = 222) 4.3 MEQ/L 3.5-5.4 CHLORIDE (test code = 2214) 105 MEQ/L 95-107 CARBON DIOXIDE (test code = 2205) 22 MEQ/L 19-31 CALCIUM (test code = 2208) 9.5 MG/DL 8.5-10.5 PROTEIN, TOTAL (test code = 222) 7.7 G/DL 6.1-8.3 ALBUMIN (test code = 220) 4.4 G/DL 3.5-5.2 CALC GLOBULIN (test code = 2240) 3.3 G/DL 1.9-3.7 CALC A/G RATIO (test code = 223) 1.3 RATIO 1.0-2.6 BILIRUBIN, TOTAL (test code = 2206) 0.4 MG/DL See_Comment [Automated me ssage] The system which generated this result transmitted reference range: <=1.2. The reference range was not used to interpret this result as normal/abnormal. ALKALINE PHOSPHATASE (test code = 2203) 147 U/L 40-133 H AST (test code = 2218) 25 U/L 9-40 ALT (test code = 2219) 19 U/L 5-40 CBC W/AUTO DIFF WITH [id number] 03:28:45* Test Item Value Reference Range Interpretation Comme nts WBC (test code = 1001) 7.8 K/UL 3.5-11.0 RBC (test code = 1002) 4.75 M/UL 3.80-5.40 HEMOGLOBIN (test code = 1003) 13.3 G/DL 11.5-15.5 HEMATOCRIT (test code = 1004) 39.6 % 34.0-45.0 MCV (test code = 1005) 83.4 fL 80.0-99.0 MCH (test code = 1006) 28.0 PG 25.0-33.0 MCHC (test code = 1007) 33.6 G/DL 31.0-36.0 RDW (test code = 1038) 13.8 % 11.5-15.0 NEUTROPHILS (test code = 1008) 73.4 % LYMPHOCYTES (test code = 1010) 17.5 % MONOCYTES (test code = 1011) 6.8 % EOSINOPHILS (test code = 1012) 1.5 % BASOPHILS (test code = 1013) 0.5 % IMMATURE GRANULOCYTES (test code = 1036) 0.3 % NUCLEATED RBCS (test code = 1065) 0.0 /100 WBC'S See_Comment [Automated Optyna ge] The system which generated this result transmitted reference range: 0.0. The reference range was not used to interpret this result as normal/abnormal. PLATELET COUNT (test code = 1015) 359 K/UL 130-400 ABSOLUTE NEUTROPHILS (test code = 1066) 5.74 K/UL 1.50-7.50 ABSOLUTE LYMPHOCYTES (test code = 1067) 1.37 K/UL 1.00-4.00 ABSOLUTE MONOCYTES (test code = 1068) 0.53 K/UL 0.20-1.00 ABSOLUTE EOSINOPHILS (test code = 1040) 0.12 K/UL 0.00-0.50 ABSOLUTE BASOPHILS (test code = 1069) 0.04 K/UL 0.00-0.20 ABS IMMATURE GRANULOCYTES (test code = 1020) 0.02 K/UL 0.00-0.10 ABS NUCLEATED RBCS (test code = 99183) 0.00 K/UL 0.00-0.11 [id number] 02:59:22* Test Item Value Reference Range Interpretation Comme nts RPR RESULT (test code = 3501) NON-REACTIVE NON-REACTIVE RPR TITER (test code = 3500) NOT INDIC. TITER NOT INDIC. LIPID [id number] 05:34:01* Test Item Value Reference Range Interpretation Comme nts CHOLESTEROL (test code = 2210) 249 MG/DL <200 H TRIGLYCERIDES (test code = 2232) 179 MG/DL <150 H HDL CHOLESTEROL (test code = 2220) 66 MG/DL >39 CALC LDL CHOL (test code = 2237) 152 MG/DL <100 H NOTE: CALCULATED LDL IS BASED ON ARTURO-SEVERINO METHOD WHICHINCLUDES ADJUSTABLE TRIGLYCERIDE:VLDL CHOLESTEROL RATIO.THIS FACTOR VARIES BY MEASURED TRIGLYCERIDE AND NON-HDLCHOLESTEROL CONCENTRATIONS WITH INCREASED CALCULATED LDL SEENIN HIGHER TRIGLYCERIDE OR LOWER NON-HDL SPECIMENS. FOR MOREINFORMATION, SEE CLIENT ANNOUNCEMENT AT [email or web address] /CalcLDL-C RISK RATIO LDL/HDL (test code = 2238) 2.30 RATIO <3.22 UNLESS OTHERW ISE INDICATED, ALL TESTING PERFORMED [facility] [address] [place] [address] ORDER PICKER/ASSEMBLER: NABIL PRIETO M.D. CLIA NUMBER [id number] [facility] [place]. [id number] LIPID [id number] 00:00:00* Test Item Value Reference Range Interpretation Comme nts CHOLESTEROL (test code = 2210) 249 MG/DL TRIGLYCERIDES (test code = 2232) 179 MG/DL HDL CHOLESTEROL (test code = 2220) 66 MG/DL CALC LDL CHOL (test code = 2237) 152 MG/DL RISK RATIO LDL/HDL (test cod e = 2238) 2.30 RATIO LIPID [id number] 00:00:00* Test Item Value Reference Range Interpretation Comme nts CHOLESTEROL (test code = 2210) 249 MG/DL TRIGLYCERIDES (test code = 2232) 179 MG/DL HDL CHOLESTEROL (test code = 2220) 66 MG/DL CALC LDL CHOL (test code = 2237) 152 MG/DL RISK RATIO LDL/HDL (test cod e = 2238) 2.30 RATIO CBC W/AUTO [id number] 00:00:00* Test Item Value Reference Range Interpretation Comme nts WBC (test code = 1001) 7.5 K/UL [...] = 1013) 0.7 % IMMATURE GRANULOCYTES (test code = 1036) 0.3 % NUCLEATED RBCS (test code = 1065) 0.0 /100WBC'S PLATELET COUNT (test code = 1015) 359 K/UL ABSOLUTE NEUTROPHILS (test c ode = 1066) 5.09 K/UL ABSOLUTE LYMPHOCYTES (test c ode = 1067) 1.79 K/UL ABSOLUTE MONOCYTES (test cod e = 1068) 0.42 K/UL ABSOLUTE EOSINOPHILS (test c ode = 1040) 0.09 K/UL ABSOLUTE BASOPHILS (test cod e = 1069) 0.05 K/UL ABS IMMATURE GRANULOCYTES (t est code = 1020) 0.02 K/UL ABS NUCLEATED RBCS (test cod e = 44047) 0.00 K/UL CBC W/AUTO [id number] 00:00:00* Test Item Value Reference Range Interpretation Comme nts WBC (test code = 1001) 7.5 K/UL [...] = 1013) 0.7 % IMMATURE GRANULOCYTES (test code = 1036) 0.3 % NUCLEATED RBCS (test code = 1065) 0.0 /100WBC'S PLATELET COUNT (test code = 1015) 359 K/UL ABSOLUTE NEUTROPHILS (test c ode = 1066) 5.09 K/UL ABSOLUTE LYMPHOCYTES (test c ode = 1067) 1.79 K/UL ABSOLUTE MONOCYTES (test cod e = 1068) 0.42 K/UL ABSOLUTE EOSINOPHILS (test c ode = 1040) 0.09 K/UL ABSOLUTE BASOPHILS (test cod e = 1069) 0.05 K/UL ABS IMMATURE GRANULOCYTES (t est code = 1020) 0.02 K/UL ABS NUCLEATED RBCS (test cod e = 58753) 0.00 K/UL HEMOGLOBIN [id number] 00:00:00* Test Item Value Reference Range Interpretation Comme nts HEMOGLOBIN A1c (test code = 82491) 4.9 % LIPID [id number] 00:00:00* Test Item Value Reference Range Interpretation Comme nts CHOLESTEROL (test code = 2210) 248 MG/DL TRIGLYCERIDES (test code = 2232) 231 MG/DL HDL CHOLESTEROL (test code = 2220) 67 MG/DL CALC LDL CHOL (test code = 2237) 144 MG/DL RISK RATIO LDL/HDL (test cod e = 2238) 2.15 RATIO COMPREHENSIVE METABOLIC [id number] 00:00:00* Test Item Value Reference Range Interpretation Comme nts GLUCOSE (test code = 2217) 62 MG/DL BUN (test code = 2208) 10 MG/DL CREATININE (test code = 2214) 0.63 MG/DL eGFR AMER. (test cod e = 73794) 120 ML/MIN/1.73 eGFR NON- AMER. (test code = 45967) 103 ML/MIN/1.73 CALC BUN/CREAT (test code = 2235) 16 RATIO SODIUM (test code = 2231) 144 MEQ/L POTASSIUM (test code = 2228) 4.3 MEQ/L CHLORIDE (test code = 2215) 107 MEQ/L CARBON DIOXIDE (test code = 2206) 23 MEQ/L CALCIUM (test code = 2209) 9.3 MG/DL PROTEIN, TOTAL (test code = 2229) 7.3 G/DL ALBUMIN (test code = 2201) 4.4 G/DL CALC GLOBULIN (test code = 2240) 2.9 G/DL CALC A/G RATIO (test code = 2234) 1.5 RATIO BILIRUBIN, TOTAL (test code = 2207) 0.3 MG/DL ALKALINE PHOSPHATASE (test code = 2204) 134 U/L AST (test code = 2218) 21 U/L ALT (test code = 2219) 19 U/L [id number] 00:00:00* Test Item Value Reference Range Interpretation Comme nts TSH, THIRD GENERATION (test code = 2821) 2.180 UIU/ML HEMOGLOBIN [id number] 00:00:00* Test Item Value Reference Range Interpretation Comme nts HEMOGLOBIN A1c (test code = 01082) 4.9 % LIPID [id number] 00:00:00* Test Item Value Reference Range Interpretation Comme nts CHOLESTEROL (test code = 2210) 248 MG/DL TRIGLYCERIDES (test code = 2232) 231 MG/DL HDL CHOLESTEROL (test code = 2220) 67 MG/DL CALC LDL CHOL (test code = 2237) 144 MG/DL RISK RATIO LDL/HDL (test cod e = 2238) 2.15 RATIO COMPREHENSIVE METABOLIC [id number] 00:00:00* Test Item Value Reference Range Interpretation Comme nts GLUCOSE (test code = 2217) 62 MG/DL BUN (test code = 2208) 10 MG/DL CREATININE (test code = 2214) 0.63 MG/DL eGFR AMER. (test cod e = 09332) 120 ML/MIN/1.73 eGFR NON- AMER. (test code = 72248) 103 ML/MIN/1.73 CALC BUN/CREAT (test code = 2235) 16 RATIO SODIUM (test code = 2231) 144 MEQ/L POTASSIUM (test code = 2228) 4.3 MEQ/L CHLORIDE (test code = 2215) 107 MEQ/L CARBON DIOXIDE (test code = 2206) 23 MEQ/L CALCIUM (test code = 2209) 9.3 MG/DL PROTEIN, TOTAL (test code = 2229) 7.3 G/DL ALBUMIN (test code = 2201) 4.4 G/DL CALC GLOBULIN (test code = 2240) 2.9 G/DL CALC A/G RATIO (test code = 2234) 1.5 RATIO BILIRUBIN, TOTAL (test code = 2207) 0.3 MG/DL ALKALINE PHOSPHATASE (test code = 2204) 134 U/L AST (test code = 2218) 21 U/L ALT (test code = 2219) 19 U/L [id number] 00:00:00* Test Item Value Reference Range Interpretation Comme nts TSH, THIRD GENERATION (test code = 2821) 2.180 UIU/ML BREAST ULTRASOUND [id number] 11:43:43- DIAG MAMM BILATERAL BETTY CAD DIGITALBILATERAL DIGITAL DIAGNOSTIC MAMMOGRAM 3D/2D WITH CAD: 07/27/2019CLINICAL: Diffuse bilateral breast pain. Digital breast tomosynthesis was performed in addition to routine CC and MLO views. Current mammographic images were evaluated by either a [email or web address] M-Vu or a [employer] CAD (computer aided detection system). Comparison is made to exams dated 08/03/2018 mammogram, 07/07/2018 mammogram - [facility], and 05/20/2017 mammogram - [facility]. The tissue of both breasts is heterogeneously dense. This may lower the sensitivity of mammography. Again noted are bilateral circumscribed masses seen throughout both breasts.No architectural distortion, malignant type calcification, or lymph node abnormality detected. A stable biopsy clip is noted in the upper outer right breast, anterior depth, and no adjacent abnormalities a re seen.INCOMPLETE: ADDITIONAL IMAGING EVALUATION NEEDEDBilateral circumscribed masses are seen throughout both breasts. Ultrasound will be performed later today for further evaluation.- BREAST ULTRASOUND BILATERALULTRASOUND OF BOTH BREASTS AND BOTH AXILLA: 07/27/2019Comparison is made to exams dated 08/03/2018 mammogram, 07/07/2018 mammogram - [facility], and 05/20/2017 mammogram - [facility]. Real-time ultrasound of both breasts and both axilla was performed. Bilateral cysts are seen throughout both breasts and this correlates with the mammographic findings. IMPRESSION: NEGATIVE - FOLLOW-UP RECOMMENDEDThere is no sonographic evidence of malignancy. Bilateral cysts are noted; benign.A follow-up mammogram in 12 months is recommended. Katheryn Leone M.D. ar/:07/27/2019 11:43:43 Entry: - 08/01/2019 08:41:58Imaging Technologist: Rosa Roman , [facility]letter sent: BIRADS 1-2 Combo FU Letter Mammogram BI-RADS: 0 Incomplete: AdditionalImaging Evaluation Needed Ultrasound BI-RADS: 1 NegativeDIAG MAMM BILATERAL BETTY CAD [id number] 11:43:43- DIAG MAMM BILATERAL BETTY CAD DIGITALBILATERAL DIGITAL DIAGNOSTIC MAMMOGRAM 3D/2D WITH CAD: 07/27/2019CLINICAL: Diffuse bilateral breast pain. Digital breast tomosynthesis was performed in addition to routine CC and MLO views. Current mammographic images were evaluated by either a [email or web address] M-Vu or a [employer] ImageChecker CAD (computer aided detection system). Comparison is made to exams dated 08/03/2018 mammogram, 07/07/2018 mammogram - [facility], and 05/20/2017 [facility]ogram - [facility]. The tissue of both breasts is heterogeneously dense. This may lower the sensitivity of mammography. Again noted are bilateral circumscribed masses seen throughout both breasts.No architectural distortion, malignant type calcification, or lymph node abnormality detected. A stable biopsy clip is noted in the upper outer right breast, anterior depth, and no adjacent abnormalities a re seen.INCOMPLETE: ADDITIONAL IMAGING EVALUATION NEEDEDBilateral circumscribed masses are seen throughout both breasts. Ultrasound will be performed later today for further evaluation.- BREAST ULTRASOUND BILATERALULTRASOUND OF BOTH BREASTS AND BOTH AXILLA: 07/27/2019Comparison is made to exams dated 08/03/2018 mammogram, 07/07/2018 mammogram - [facility], and 05/20/2017 mammogram - [facility]. Real-time ultrasound of both breasts and both axilla was performed. Bilateral cysts are seen throughout both breasts and this correlates with the mammographic findings. IMPRESSION: NEGATIVE - FOLLOW-UP RECOMMENDEDThere is no sonographic evidence of malignancy. Bilateral cysts are noted; benign.A follow-up mammogram in 12 months is recommended. Katheryn Leone M.D. ar/:07/27/2019 11:43:43 Entry: - 08/01/2019 08:41:58Imaging Technologist: Rosa VASQUEZ, [facility] FWletter sent: BIRADS 1-2 Combo FU Letter Mammogram BI-RADS: 0 Incomplete: AdditionalImaging Evaluation Needed Ultrasound BI-RADS: 1 NegativeBREAST ULTRASOUND CORE BIOPSY [id number] 16:46:01- BREAST ULTRASOUND CORE BIOPSY RIGHTULTRASOUND GUIDED BIOPSY RIGHT BREAST WITH MARKING DEVICE INSERTED: 08/03/2018CLINICAL: Ultrasound biopsy, right breast. Comparison is made to exams dated 07/07/2018 ultrasound, [facility] and [facility]2017 [facility] - [facility]. An ultrasound guided biopsy using [...] location, a specimen was obtained using a [employer] biopsy device. A clip was inserted into the biopsy cavity. The specimen was sent to the laboratory for pathological analysis. IMPRESSION: ULTRASOUND GUIDED BIOPSYUltrasound guided biopsy of the mass in the right breast at 12 o'clock, middle depth, was successful with no apparent post procedure complications. Waiting for pathology results. A final report will be issued when these become available. FINAL PATHOLOGY: Right breastat 12 o'clock, 6 cm from the nipple, core needle biopsy:Benign fibrocystic change with cyst in the usual type ductal epithelial hyperplasia. No atypia or malignancy is seen.RECOMMENDATION: Return forannual screening mammography in one year. BI-RADS 2. Benign.Yehuda Leone M.D.,ar/:08/08/2018 16:46:01 Entry: - 08/09/2018 07:32:01Imaging Technologist: Taylor Escudero , [facility] sent: Benign BiopsyDIAG MAMM RIGHT CAD [id number] 11:19:51- DIAG MAMM RIGHT CAD DIGITALUNILATERAL RIGHT DIGITAL DIAGNOSTIC MAMMOGRAM WITH CAD POST-PROCEDURE IMAGING FOR MARKER PLACEMENT: 08/03/2018CLINICAL: Post clip placement. Current mammographic images were evaluated by either a [email or web address] M-Vu or a [employer] Image[employer] CAD (computer aided detection system). Comparison is made to exams dated 07/07/2018 mammogram - [facility] 05/20/2017 mammogram - [facility], and 03/31/2010 mammogram - [facility] [address]. The tissue of the right breast is heterogeneously dense. This may lower the sensitivity of mammography. Postprocedure mammogram demonstrates biopsy marker clip within the biopsied right breast mass at 12 o'clock.IMPRESSION: POST PROCEDURE IMAGING FOR MARKER PLACEMENTSuccessful biopsy marker placement in the rightseen right breast mass.Yehuda Watt M.D. ss/:08/03/2018 11:19:51 Follow Up Clerk: Shannan Morales FW, [facility]FWMammogram BI-RADS: Post-procedure mammogram for marker placementBREAST ULTRASOUND [id number] 12:37:42- DIAG MAMM BILATERAL BETTY CAD DIGITALBILATERAL DIGITAL DIAGNOSTIC MAMMOGRAM 3D/2D WITH CAD: 07/07/2018CLINICAL: Abnormal clinical breast exam. Digital breast tomosynthesis was performed in addition to routine CC and MLO views. Current mammographic images were evaluated by either a [email or web address] M-Vu or a [employer] ImageDiagnoplexcker CAD (computer aided detection system). Comparison is made to exams dated 05/20/2017 mammogram - [facility] and 03/31/2010 mammogram - [facility] [address]. The tissue of [...] to exams dated 05/20/2017 mammogram - [facility] and 03/31/2010 mammogram - [facility] [address]. Real-time ultrasound of both breasts and both axilla was performed. RIGHT BREAST: There is a 9 x 3 x 6 mm heterogeneous complicated cyst/complex cystic and solid mass in the right breast at 12 o'clock, 6 cm from the nipple. Mild peripheral vascularity is identified. Scattered simple cysts are seen throughout the right breast. Ultrasound of the axilla is unremarkable.LEFT BREAST: Scattered cysts are seen throughout the left breast.Ultrasound of the left axilla is unremarkable.IMPRESSION: SUSPICIOUS OF MALIGNANCY - FOLLOW-UP RECOMMENDEDRIGHT BREAST: The 9 x 3 x 6 mm complicated cyst/complex cystic and solid mass in the right breast at 12 o'clock, 6 cm from the nipple, is at a low suspicion for malignancy. An ultrasound guidedbiopsy is recommended. Results were discussed with the patient.Katheryn Leone M.D. ar/:07/07/2018 12:37:42 Attending Technologist: Claudia Tavarez FW, [facility]Imaging Technologis t: Trinh Aparicio FW, [facility]letter sent: BIRADS 4/5 Biopsy Mammogram BI-RADS: 0 Indeterminate Ultrasound BI-RADS: 4a Suspicious abnormality - low suspicion for malignancyDIAG MAMM BILATERAL BETTY CAD [id number] 12:37:42- DIAG MAMM BILATERAL BETTY CAD DIGITALBILATERAL DIGITAL DIAGNOSTIC MAMMOGRAM 3D/2D WITH CAD: 07/07/2018CLINICAL: Abnormal clinical breast exam. Digital breast tomosynthesis was performed in addition to routine CC and MLO views. Current mammographic images were evaluated by either a [employer]Vu or a [employer] ImageChecker CAD (computer aided detection system). Comparison is made to exams dated 05/20/2017 mammogram - [facility] and [facility]/31/2010 [facility] [address]. The tissue of both [...] to exams dated 05/20/2017 mammogram - [facility] and 03/31/2010 [facility]ogram - [facility] [address]. Real-time ultrasound of both breasts and both axilla was performed. RIGHT BREAST: There is a 9 x 3 x 6 mm heterogeneous complicated cyst/complex cystic and solid mass in the right breast at 12 o'clock, 6 cm from the nipple. Mild peripheral vascularity is identified. Scattered simple cysts are seen throughout the right breast. Ultrasound of the axilla is unremarkable.LEFT BREAST: Scattered cysts are seen throughout the left breast.Ultrasound of the left axilla is unremarkable.IMPRESSION: SUSPICIOUS OF MALIGNANCY - FOLLOW-UP RECOMMENDEDRIGHT BREAST: The 9 x 3 x 6 mm complicated cyst/complex cystic and solid mass in the right breast at 12 o'clock, 6 cm from the nipple, is at a low suspicion for malignancy. An ultrasound guidedbiopsy is recommended. Results were discussed with the patient.Katheryn Leone M.D. ar/:07/07/201812:37:42 Attending Technologist: Claudia VASQUEZ, [facility]FWImaging Technologist: Trinh VASQUEZ, [facility]letter sent: BIRADS 4/5 Biopsy Mammogram BI-RADS: 0 Indeterminate Ultrasound BI-RADS: 4a Suspicious abnormality - low suspicion for malignancyPAP TEST, THINPREP, [id number] 00:00:00* Test Item Value Reference Range Interpretation Comme nts SOURCE: (test code = 8001) Cervical/Endocervical SLIDES: (test code = 8011) 1 LMP: (test code = 8021) 06/11/2018 SPECIMEN ADEQUACY: (test code = 97980) (NOTE) INTERPRETATION: (test code = 35691) NILM/NO EPITH. ABNORMALITY;SEE BELOW PIVOT MAKER: (test code = 8101) Mike Hoyt QC TECHNOLOGIST: (test code = 8111) ROX Del Castillo(ASCP)IAC LOCATION: (test code = 07897) (NOTE) CPT: (test code = 8140) (NOTE) PAP TEST, THINPREP, [id number] 00:00:00* Test Item Value Reference Range Interpretation Comme nts SOURCE: (test code = 8001) Cervical/Endocervical SLIDES: (test code = 8011) 1 LMP: (test code = 8021) 06/11/2018 SPECIMEN ADEQUACY: (test code = 75765) (NOTE) INTERPRETATION: (test code = 26821) NILM/NO EPITH. ABNORMALITY;SEE BELOW PIVOT MAKER: (test code = 8101) Mike Hoyt QC TECHNOLOGIST: (test code = 8111) ROX Del Castillo(ASCP)IAC LOCATION: (test code = 79501) (NOTE) CPT: (test code = 8140) (NOTE) CULTURE, [id number] 00:00:00* Test Item Value Reference Range Interpretation Comme nts CULTURE, URINE (test code = 82210) SPECIMEN NUMBER: [id number] CULTURE, [id number] 00:00:00* Test Item Value Reference Range Interpretation Comme nts CULTURE, URINE (test code = 89398) SPECIMEN NUMBER: [id number] ACUTE HEPATITIS [id number] 00:00:00* Test Item Value Reference Range Interpretation Comme nts HEPATITIS A IgM (test code = 50851) NON-REACTIVE HEPATITIS B CORE IgM (test c ode = 4644) NON-REACTIVE HEPATITIS B SURF AG (test co de = 2739) NON-REACTIVE HEPATITIS C ANTIBODY (test c ode = 4675) NON-REACTIVE HCV INDEX (test code = 09750) 0.12 INTERPRETATION HEPATITIS A: (test code = 2552) (NOTE) INTERPRETATION HEPATITIS B: (test code = 81912) (NOTE) INTERPRETATION HEPATITIS C: (test code = 45677) (NOTE) GC AND CHLAMYDIA AMPLIFIED, [id number] 00:00:00* Test Item Value Reference Range Interpretation Comme nts GONORRHEA, TMA (test code = 89731) NEGATIVE CHLAMYDIA, TMA (test code = 90710) NEGATIVE ACUTE HEPATITIS [id number] 00:00:00* Test Item Value Reference Range Interpretation Comme nts HEPATITIS A IgM (test code = 07783) NON-REACTIVE HEPATITIS B CORE IgM (test c ode = 4644) NON-REACTIVE HEPATITIS B SURF AG (test co de = 2739) NON-REACTIVE HEPATITIS C ANTIBODY (test c ode = 4675) NON-REACTIVE HCV INDEX (test code = 76710) 0.12 INTERPRETATION HEPATITIS A: (test code = 2552) (NOTE) INTERPRETATION HEPATITIS B: (test code = 36512) (NOTE) INTERPRETATION HEPATITIS C: (test code = 72996) (NOTE) GC AND CHLAMYDIA AMPLIFIED, [id number] 00:00:00* Test Item Value Reference Range Interpretation Comme nts GONORRHEA, TMA (test code = 23420) NEGATIVE CHLAMYDIA, TMA (test code = 33718) NEGATIVE HIV AB/AG COMBO RFLX [id number] 00:00:00* Test Item Value Reference Range Interpretation Comme nts HIV 1/2 4TH GEN, RFLX CONF ( test code = 3514) NON-REACTIVE [id number] 00:00:00* Test Item Value Reference Range Interpretation Comme nts RPR RESULT (test code = 3501) NON-REACTIVE RPR TITER (test code = 3500) NOT INDIC. TITER HPV HIGH RISK WITH GENOTYPE, [id number] 00:00:00* Test Item Value Reference Range Interpretation Comme nts HPV HIGH RISK INTERP (test c ode = 31589) NEGATIVE HPV 16 (test code = 36627) NEGATIVE HPV 18 (test code = 77405) NEGATIVE HPV, HR, OTHER GENOTYPES (te st code = 05211) NEGATIVE HIV AB/AG COMBO RFLX [id number] 00:00:00* Test Item Value Reference Range Interpretation Comme nts HIV 1/2 4TH GEN, RFLX CONF ( test code = 3514) NON-REACTIVE [id number] 00:00:00* Test Item Value Reference Range Interpretation Comme nts RPR RESULT (test code = 3501) NON-REACTIVE RPR TITER (test code = 3500) NOT INDIC. TITER HPV HIGH RISK WITH GENOTYPE, [id number] 00:00:00* Test Item Value Reference Range Interpretation Comme nts HPV HIGH RISK INTERP (test c ode = 62345) NEGATIVE HPV 16 (test code = 36389) NEGATIVE HPV 18 (test code = 56899) NEGATIVE HPV, HR, OTHER GENOTYPES (te st code = 65057) NEGATIVE SURGICAL PATHOLOGY [id number] 00:00:00* Test Item Value Reference Range Interpretation Comme nts DIAGNOSIS: (test code = 8200) (NOTE) COMMENTS: (test code = 8205) (NOTE) MICROSCOPIC DESCRIPTION: (te st code = 8210) (NOTE) CLINICAL DATA: (test code = 8401) (NOTE) GROSS DESCRIPTION: (test code = 8220) (NOTE) PATHOLOGIST: (test code = 8250) (NOTE) CPT: (test code = 8400) (NOTE) SURGICAL PATHOLOGY [id number] 00:00:00* Test Item Value Reference Range Interpretation Comme nts DIAGNOSIS: (test code = 8200) (NOTE) COMMENTS: (test code = 8205) (NOTE) MICROSCOPIC DESCRIPTION: (te st code = 8210) (NOTE) CLINICAL DATA: (test code = 8401) (NOTE) GROSS DESCRIPTION: (test code = 8220) (NOTE) PATHOLOGIST: (test code = 8250) (NOTE) CPT: (test code = 8400) (NOTE) PAP TEST, THINPREP, [id number] 00:00:00* Test Item Value Reference Range Interpretation Comme nts SOURCE: (test code = 8001) Cervical/Endocervical SLIDES: (test code = 8011) 1 LMP: (test code = 8021) 2017-04-29 SPECIMEN ADEQUACY: (test code = 37682) (NOTE) INTERPRETATION: (test code = 28679) EPITHELIAL ABNORMALITY SEE BELOW OTHER COMMENTS: (test code = 8081) (NOTE) PIVOT MAKER: (test code = 8101) ROX JEAN-BAPTISTE(ASCP)IAC QC TECHNOLOGIST: (test code = 8111) ROX Del Castillo(ASCP)[facility] PATHOLOGIST INTERPRETATION BY: (test code = 8122) Emily Wren LOCATION: (test code = 85129) (NOTE) CPT: (test code = 8140) (NOTE) PAP TEST, THINPREP, [id number] 00:00:00* Test Item Value Reference Range Interpretation Comme nts SOURCE: (test code = 8001) Cervical/Endocervical SLIDES: (test code = 8011) 1 LMP: (test code = 8021) 2017-04-29 SPECIMEN ADEQUACY: (test code = 25388) (NOTE) INTERPRETATION: (test code = 94710) EPITHELIAL ABNORMALITY SEE BELOW OTHER COMMENTS: (test code = 8081) (NOTE) PIVOT MAKER: (test code = 8101) ROX JEAN-BAPTISTE(ASCP)[facility] QC TECHNOLOGIST: (test code = 8111) ROX Del Castillo(ASCP)[facility] PATHOLOGIST INTERPRETATION BY: (test code = 8122) Emily Wren LOCATION: (test code = 88127) (NOTE) CPT: (test code = 8140) (NOTE) GC AND CHLAMYDIA AMPLIFIED, [id number] 00:00:00* Test Item Value Reference Range Interpretation Comme nts GONORRHEA, TMA (test code = 75140) NEGATIVE CHLAMYDIA, TMA (test code = 60827) NEGATIVE GC AND CHLAMYDIA AMPLIFIED, [id number] 00:00:00* Test Item Value Reference Range Interpretation Comme nts GONORRHEA, TMA (test code = 45110) NEGATIVE CHLAMYDIA, TMA (test code = 56469) NEGATIVE CULTURE, [id number] 00:00:00* Test Item Value Reference Range Interpretation Comme nts CULTURE, URINE (test code = 00939) SPECIMEN NUMBER: [id number] CULTURE, [id number] 00:00:00* Test Item Value Reference Range Interpretation Comme nts CULTURE, URINE (test code = 22395) SPECIMEN NUMBER: [id number] HEMOGLOBIN A1c [ADDED]2017-05-11 00:00:00* Test Item Value Reference Range Interpretation Comme nts HEMOGLOBIN A1c (test code = 28209) 4.9 % CBC W/AUTO DIFF WITH PLATELETS [ADDED]2017-05-11 00:00:00* Test Item Value Reference Range Interpretation Comme nts WBC (test code = 1001) 9.8 K/UL [...] 344 K/UL HPV HIGH RISK WITH GENOTYPE, [id number] 00:00:00* Test Item Value Reference Range Interpretation Comme nts HPV HIGH RISK INTERP (test c ode = 74023) POSITIVE HPV 16 (test code = 05520) NEGATIVE HPV 18 (test code = 97412) NEGATIVE HPV, HR, OTHER GENOTYPES (te st code = 34409) POSITIVE COMPREHENSIVE METABOLIC PANEL [ADDED]2017-05-11 00:00:00* Test Item Value Reference Range Interpretation Comme nts GLUCOSE (test code = 2217) 77 MG/DL BUN (test code = 2208) 8 MG/DL CREATININE (test code = 2214) 0.63 MG/DL eGFR AMER. (test cod e = 98442) 122 ML/MIN/1.73 eGFR NON- AMER. (test code = 81350) 105 ML/MIN/1.73 CALC BUN/CREAT (test code = 2235) 13 RATIO SODIUM (test code = 2231) 138 MEQ/L POTASSIUM (test code = 2228) 4.8 MEQ/L CHLORIDE (test code = 2215) 101 MEQ/L CARBON DIOXIDE (test code = 2206) 20 MEQ/L CALCIUM (test code = 2209) 8.9 MG/DL PROTEIN, TOTAL (test code = 2229) 7.8 G/DL ALBUMIN (test code = 2201) 4.4 G/DL CALC GLOBULIN (test code = 2240) 3.4 G/DL CALC A/G RATIO (test code = 2234) 1.3 RATIO BILIRUBIN, TOTAL (test code = 2207) 0.3 MG/DL ALKALINE PHOSPHATASE (test code = 2204) 131 U/L AST (test code = 2218) 21 U/L ALT (test code = 2219) 15 U/L LIPID PANEL [ADDED]2017-05-11 00:00:00* Test Item Value Reference Range Interpretation Comme nts CHOLESTEROL (test code = 2210) 237 MG/DL TRIGLYCERIDES (test code = 2232) 409 MG/DL HDL CHOLESTEROL (test code = 2220) 49 MG/DL CALC LDL CHOL (test code = 2237) NOTE MG/DL RISK RATIO LDL/HDL (test cod e = 2238) (NOTE) RATIO TSH [ADDED]2017-05-11 00:00:00* Test Item Value Reference Range Interpretation Comme nts TSH (test code = 2821) 4.530 UIU/ML HEMOGLOBIN A1c [ADDED]2017-05-11 00:00:00* Test Item Value Reference Range Interpretation Comme nts HEMOGLOBIN A1c (test code = 80681) 4.9 % CBC W/AUTO DIFF WITH PLATELETS [ADDED]2017-05-11 00:00:00* Test Item Value Reference Range Interpretation Comme nts WBC (test code = 1001) 9.8 K/UL [...] 344 K/UL HPV HIGH RISK WITH GENOTYPE, [id number] 00:00:00* Test Item Value Reference Range Interpretation Comme nts HPV HIGH RISK INTERP (test c ode = 40264) POSITIVE HPV 16 (test code = 81493) NEGATIVE HPV 18 (test code = 25558) NEGATIVE HPV, HR, OTHER GENOTYPES (te st code = 54046) POSITIVE COMPREHENSIVE METABOLIC PANEL [ADDED]2017-05-11 00:00:00* Test Item Value Reference Range Interpretation Comme nts GLUCOSE (test code = 2217) 77 MG/DL BUN (test code = 2208) 8 MG/DL CREATININE (test code = 2214) 0.63 MG/DL eGFR AMER. (test cod e = 05848) 122 ML/MIN/1.73 eGFR NON- AMER. (test code = 96761) 105 ML/MIN/1.73 CALC BUN/CREAT (test code = 2235) 13 RATIO SODIUM (test code = 2231) 138 MEQ/L POTASSIUM (test code = 2228) 4.8 MEQ/L CHLORIDE (test code = 2215) 101 MEQ/L CARBON DIOXIDE (test code = 2206) 20 MEQ/L CALCIUM (test code = 2209) 8.9 MG/DL PROTEIN, TOTAL (test code = 2229) 7.8 G/DL ALBUMIN (test code = 2201) 4.4 G/DL CALC GLOBULIN (test code = 2240) 3.4 G/DL CALC A/G RATIO (test code = 2234) 1.3 RATIO BILIRUBIN, TOTAL (test code = 2207) 0.3 MG/DL ALKALINE PHOSPHATASE (test code = 2204) 131 U/L AST (test code = 2218) 21 U/L ALT (test code = 2219) 15 U/L LIPID PANEL [ADDED]2017-05-11 00:00:00* Test Item Value Reference Range Interpretation Comme nts CHOLESTEROL (test code = 2210) 237 MG/DL TRIGLYCERIDES (test code = 2232) 409 MG/DL HDL CHOLESTEROL (test code = 2220) 49 MG/DL CALC LDL CHOL (test code = 2237) NOTE MG/DL RISK RATIO LDL/HDL (test cod e = 2238) (NOTE) RATIO TSH [ADDED]2017-05-11 00:00:00* Test Item Value Reference Range Interpretation Comme nts TSH (test code = 2821) 4.530 UIU/ML
[2024-05-16] MEDS ORDERED: KETOROLAC 10 MG TAB ONE (01:55)
[2024-05-16] MEDS ORDERED: ONDANSETRON 4 MG (ODT) TAB ONE (01:55)
[2024-05-16] MEDS ORDERED: HYDROCODONE/APAP 5/325 MG TAB ONE (01:55)
[2024-05-16] MEDS ORDERED: DIAZEPAM 5 MG TABLET ONE (01:56)
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
[2024-05-16 11:00] VITALS: TEMP 98.3
[2024-05-16 11:05] VITALS: BP 118/81; O2SAT 97
== END 2024-05-16 05:37 | disposition home or self-care (01) ==
LOC: ER 00:41
DX: S20.219A Contusion of unspecified front wall of thorax, initial encounter (principal); S00.83XA Contusion of other part of head, initial encounter; S40.011A Contusion of right shoulder, initial encounter; Y04.8XXA Assault by other bodily force, initial encounter
CPT/HCPCS: 70450; 70486; 71250; 72125; 74176; 76377; 93005; 99284; Q0162